=== PATIENT | female | born 1990 | race Caucasian/White ===

== ENCOUNTER 2019-12-09 21:46 | Inpatient (IN) | payer OTHER, SELFPAY ==
[2019-12-09] MEDS ORDERED: NA CHLORIDE 0.9% 2,000 ML ONE (22:57)
[2019-12-09] MEDS ORDERED: ONDANSETRON 4 MG/2 ML VIAL ONE (23:40)
[2019-12-10 00:02] LABS: Absolute Lymphocytes (CBC) 1.7 K/uL (0.7-4.9); Basophils % 0.4 % (0-1.3); Hematocrit 33.7 % (36.0-45.0); MPV 8.1 fL (7.6-11.3); RBC Red Blood Cell Count 4.87 M/uL (3.86-4.86)
[2019-12-10 00:04] LABS: Protime INR 1.25
[2019-12-10] MEDS ORDERED: METHYLPREDNISOLONE 125 MG INJ ONE (00:30)
[2019-12-10] MEDS ORDERED: DIPHENHYDRAMINE 50 MG/ML VIAL ONE (00:30)
[2019-12-10] MEDS ORDERED: METOCLOPRAMIDE 10 MG/2mL INJ ONE (00:34)
[2019-12-10 00:47] LABS: ALT/SGPT 24 U/L (12-78); AST/SGOT 23 U/L (15-37); Albumin 3.4 g/dL (3.4-5.0); Alkaline Phosphatase 83 U/L (45-117); BUN Blood Urea Nitrogen 15 mg/dL (7-18); Bicarbonate 27 mmol/L (21-32); Bilirubin Direct 0.1 mg/dL (0-0.2); Bilirubin Total 0.2 mg/dL (0.2-1.0); Creatine Phosphokinase 49 U/L (26-192); Glucose Level 105 mg/dL (74-106); Potassium 3.2 mmol/L (3.5-5.1); Protein, Total 8.4 g/dL (6.4-8.2); Sodium Level 138 mmol/L (136-145); Troponin (Emerg Dept Use Only) < 0.02 ng/mL (0.0-0.045)
[2019-12-10 01:01] LABS: Blood Morphology Comment NOTED (NOT SEEN); Hypochromasia 1+; Platelet Estimate ADEQ; Urine White Blood Cell Casts OK
[2019-12-10 01:12] LABS: Urine Bacteria 20-50 /HPF (<20); Urine Culture Reflex Order REFLEXED; Urine Mucus 2+ /HPF (NONE SEEN); Urine RBC <5 /HPF (NONE SEEN)
--- NOTE | 2019-12-10 02:06 | EDPHYS ---
Physician Documentation [facility] Name: Charlee Rodriguez Age: 29 yrs Sex: Female : 1990 Arrival Date: 12/09/2019 Time: 21:48 Bed 13 Private MD: ED Physician Alvaro Graf HPI: 23:38 This 29 yrs old Female presents to ER via Ambulatory with complaints of Fever.jr8 23:38 The patient reports fever, not measured (subjective). Onset: The symptoms/episode jr8 began/occurred acutely, 1 week(s) ago. Modifying factors: there are no obvious modifying factors. Associated signs and symptoms: Pertinent positives: arthralgias, myalgias. Severity of symptoms: At their worst the symptoms were moderate in the emergency department the symptoms are unchanged. The patient has not experienced similar symptoms in the past. The patient has been recently seen by a physician:. Patient stated that she started with fever a week ago. Stated that she was flu tested at [facility] and was negative. Stated that since yesterday she started having odd painful and itchy bruising spots along with still running fever. Denies abdominal pain, vomiting, or diarrhea. Denies upper respiratory complaints. Occasional nausea . Historical: - Allergies: 22:10 pseudoephedrine HCl; ea - Home Meds: 22:10 None [Active]; ea - PMHx: 22:10 Anemia; Kidney stones; ea - PSHx: 22:10 ; Appendectomy; ea - Immunization history:: Adult Immunizations up to date. - Social history:: Smoking status: Patient denies any tobacco usage or history of. ROS: 23:38 Eyes: Negative for injury, pain, redness, and discharge, ENT: Negative for injury, jr8 pain, and discharge, Neck: Negative for injury, pain, and swelling, Cardiovascular: Negative for chest pain, palpitations, and edema, Respiratory: Negative for shortness of breath, cough, wheezing, and pleuritic chest pain, Back: Negative for injury and pain, MS/Extremity: Negative for injury and deformity, Skin: Positive for lesions Neuro: Negative for headache, weakness, numbness, tingling, and seizure. 23:38 Constitutional: Positive for body aches, chills, fatigue, fever, malaise. 23:38 Abdomen/GI: Positive for nausea, Negative for abdominal pain, vomiting, diarrhea, constipation, abdominal cramps, abdominal distension, anorexia, dysphagia, hematemesis, black/tarry stool, rectal pain, rectal bleeding, bowel incontinence, flatulence. Exam: 23:38 Eyes: Pupils equal round and reactive to light, extra-ocular motions intact. Lids and jr8 lashes normal. Conjunctiva and sclera are non-icteric and not injected. Cornea within normal limits. Periorbital areas with no swelling, redness, or edema. ENT: Nares patent. No nasal discharge, no septal abnormalities noted. Tympanic membranes are normal and external auditory canals are clear. Oropharynx with no redness, swelling, or masses, exudates, or evidence of obstruction, uvula midline. Mucous membranes moist. Neck: Trachea midline, no thyromegaly or masses palpated, and no cervical lymphadenopathy. Supple, full range of motion without nuchal rigidity, or vertebral point tenderness. No Meningismus. Respiratory: Lungs have equal breath sounds bilaterally, clear to auscultation and percussion. No rales, rhonchi or wheezes noted. No increased work of breathing, no retractions or nasal flaring. Abdomen/GI: Soft, non-tender, with normal bowel sounds. No distension or tympany. No guarding or rebound. No evidence of tenderness throughout. Back: No spinal tenderness. No costovertebral tenderness. Full range of motion. MS/ Extremity: Pulses equal, no cyanosis. Neurovascular intact. Full, normal range of motion. Neuro: Awake and alert, GCS 15, oriented to person, place, time, and situation. Cranial nerves II-XII grossly intact. Motor strength 5/5 in all extremities. Sensory grossly intact. Cerebellar exam normal. Normal gait. 23:38 Cardiovascular: Rate: tachycardic, Rhythm: regular, Pulses: Pulses are 2+ in right radial artery and left radial artery. Heart sounds: normal, normal S1and S2, no S3 or S4, no murmur, no rub, no gallop, Edema: is not appreciated, JVD: is not appreciated. 23:38 Skin: Patient has painful red, raised, macular regions to lower extremities, feet, and abdomen. Non blanching and some with ecchymotic sites . Vital Signs: 22:02 BP 120 / 78; Pulse 110; Resp 18; Temp 98.8; Pulse Ox 98% on R/A; Weight 58.97 kg; ea Height 5 ft. 7 in. (170.18 cm); 12/09 01:00 BP 106 / 64; Pulse 97; Resp 18; Pulse Ox 98% ; ea 02:00 BP 108 / 70; Pulse 98; Resp 18; Pulse Ox 98% on R/A; ea 03:07 BP 102 / 71; Pulse 95; Resp 18; Pulse Ox 96% ; ea 04:06 BP 106 / 72; Pulse 86; Resp 16 S; Temp 98(O); Pulse Ox 96% on R/A; Pain 2/10; bb 22:02 Body Mass Index 20.36 (58.97 kg, 170.18 cm) ea Procedures: 02:30 Lumbar Puncture: Patient placed in sitting position. Prepped with Betadine. Draped jr8 using sterile technique. Collected 8 ml's of clear fluid. Sample sent to lab. Puncture site dressed with band aid, Patient tolerated well. MDM: 22:26 Patient medically screened. [facility] [place] 12/09 02:04 Data reviewed: vital signs, nurses notes, lab test result(s), EKG, radiologic studies, [facility] [place] CT scan, plain films. Data interpreted: Pulse oximetry: on room air is 98 %. Interpretation: normal. Counseling: I had a detailed discussion with the patient and/or guardian regarding: the historical points, exam findings, and any diagnostic results supporting the discharge/admit diagnosis, lab results, radiology results, the need for outpatient follow up. Physician consultation: Damon Nash MD was called at 02:04, was contacted at 02:04, regarding admission, to the telemetry unit. consult, patient's condition, and will see patient in ED. 22:45 Order name: Sed Rate; Complete Time: 01:13 [facility] [place] 22:45 Order name: Basic Metabolic Panel; Complete Time: 00:48 [facility] [place] 22:45 Order name: Blood Culture Adult (2) [facility] [place] 22:45 Order name: CBC with Diff; Complete Time: 01:13 [facility] [place] 22:45 Order name: CPK; Complete Time: 00:48 [facility] [place] 22:45 Order name: Lactate; Complete Time: 00:14 [facility] [place] 22:45 Order name: LFT's; Complete Time: 00:48 8 22:45 Order name: Procalcitonin; Complete Time: 00:48 22:45 Order name: Protime (+inr); Complete Time: 00:14 8 22:45 Order name: Ptt, Activated; Complete Time: 00:14 8 22:45 Order name: Troponin (emerg Dept Use Only); Complete Time: 00:48 8 22:45 Order name: CRP; Complete Time: 00:48 8 22:45 Order name: Wilkin Screen Profile; Complete Time: 00:25 8 22:46 Order name: Urine Microscopic Only; Complete Time: 01:13 jr8 12/09 00:09 Order name: CBC Smear Scan; Complete Time: 01:13 EDMS 12/09 01:16 Order name: Urine Culture EDMS 12/09 02:04 Order name: CSF Bacterial Antigens (tube 1); Complete Time: 15:36 jr8 12/09 02:04 Order name: Csf Culture 8 12/09 02:04 Order name: Fluid Cell Count,Body; Complete Time: 15:36 jr8 12/09 02:04 Order name: Spinal Fluid Profile; Complete Time: 15:36 jr8 12/09 03:03 Order name: CBC with Automated Diff EDMS 12/09 03:03 Order name: CBC with Automated Diff EDMS 12/09 03:03 Order name: Comprehensive Metabolic Panel EDMS 12/09 03:03 Order name: Comprehensive Metabolic Panel EDMS 12/09 03:07 Order name: D-Dimer; Complete Time: 15:36 EDMS 12/09 03:07 Order name: Cortisol; Complete Time: 15:36 EDMS 12/09 03:07 Order name: C-Reactive Protein; Complete Time: 15:36 EDMS 12/09 03:07 Order name: Ferritin; Complete Time: 15:36 EDMS 12/09 03:08 Order name: Fibrinogen; Complete Time: 15:36 EDMS 12/09 03:08 Order name: Protime (+INR); Complete Time: 15:36 EDMS 22:45 Order name: Chest Single View XRAY; Complete Time: 15:36 jr8 22:45 Order name: Cardiac monitoring; Complete Time: 01:14 jr8 22:45 Order name: EKG - Nurse/Tech; Complete Time: 22:57 8 22:45 Order name: IV Saline Lock - Large Bore; Complete Time: 23:46 jr8 22:45 Order name: Labs collected and sent; Complete Time: 23:52 8 22:45 Order name: O2 Per Protocol; Complete Time: 23:53 8 22:45 Order name: O2 Sat Monitoring; Complete Time: 23:53 8 22:45 Order name: Urine Dipstick-Ancillary (obtain specimen); Complete Time: 23:53 8 22:46 Order name: Urine Test (obtain specimen); Complete Time: 01:14 jr8 12/09 00:46 Order name: CT Head Brain wo Cont jr8 12/09 03:03 Order name: CONS Pharmacy Consult EDMS 12/09 03:03 Order name: Regular EDMS 12/09 03:08 Order name: PTT, Activated Partial Thromb; Complete Time: 15:36 EDMS 12/09 03:08 Order name: Sedimentation Rate, Westergren; Complete Time: 15:36 EDMS 12/09 03:08 Order name: Transferrin Sat/Iron Binding; Complete Time: 15:36 EDMS 12/09 03:08 Order name: Basic Metabolic Panel EDMS 12/09 03:08 Order name: Basic Metabolic Panel; Complete Time: 15:36 EDMS 12/09 03:08 Order name: CBC with Automated Diff EDMS 12/09 03:08 Order name: CBC with Automated Diff; Complete Time: 15:36 EDMS 12/09 03:08 Order name: Lactate EDMS 12/09 03:08 Order name: Lactate; Complete Time: 15:36 EDMS 12/09 03:08 Order name: Procalcitonin EDMS 12/09 03:08 Order name: Procalcitonin; Complete Time: 15:36 EDMS 12/09 03:08 Order name: Iron; Complete Time: 15:36 EDMS 12/09 02:04 Order name: LP Setup; Complete Time: 02:46 8 12/09 02:04 Order name: LP Consents; Complete Time: 02:46 Administered Medications: 23:45 Drug: NS 0.9% (30 ml/kg) 30 ml/kg Route: IV; Rate: bolus; Site: right antecubital; ea 12/09 02:47 Follow up: Response: No adverse reaction; IV Status: Completed infusion ea 00:32 Drug: SOLU-Medrol 125 mg Route: IVP; Site: right antecubital; ea 01:14 Follow up: Response: No adverse reaction ea 00:41 Drug: Benadryl 25 mg Route: IVP; Site: right antecubital; ea 01:14 Follow up: Response: No adverse reaction ea 00:41 Drug: Zofran (Ondansetron) 4 mg Route: IVP; Site: right antecubital; ea 01:15 Follow up: Response: No adverse reaction ea 00:41 Drug: Reglan 10 mg Route: IVP; Site: right antecubital; ea 01:15 Follow up: Response: No adverse reaction ea 02:40 Drug: Rocephin 1 grams Route: IV; Rate: calculated rate; Site: right antecubital; ea 02:59 Follow up: Response: No adverse reaction; IV Status: Completed infusion ea 03:20 Drug: fentaNYL (PF) 50 mcg Route: IVP; Site: right antecubital; ea Disposition: 07:24 Co-signature as Attending Physician, Alvaro Graf MD I agree with the assessment and tw4 plan of care. Disposition: 12/10/19 02:05 Hospitalization ordered by Damon Nash for Observation. Preliminary diagnosis are Vasculitis limited to the skin, unspecified, Dehydration, Tachycardia, unspecified. - Bed requested for Telemetry/MedSurg (observation). - Status is Observation. bb - Condition is Stable. - Problem is new. - Symptoms have improved. Signatures: Dispatcher [employer] EDMS Frances Woods RN RN mw Ballard, Brenda, RN RN bb Roszak, Josh, PA PA jrCarmina Fernández RN RN ea Wadley, Terrence, MD MD tw4 Corrections: (The following items were deleted from the chart) 23:41 23:38 Eyes: Negative for injury, pain, redness, and discharge, ENT: Negative for jr8 injury, pain, and discharge, Neck: Negative for injury, pain, and swelling, Cardiovascular: Negative for chest pain, palpitations, and edema, Respiratory: Negative for shortness of breath, cough, wheezing, and pleuritic chest pain, Back: Negative for injury and pain, MS/Extremity: Negative for injury and deformity, Skin: Negative for injury, rash, and discoloration, Neuro: Negative for headache, weakness, numbness, tingling, and seizure, jr8 12/09 02:36 02:05 Hospitalization Ordered by Damon Nash MD for Observation. Preliminary mw diagnosis is Vasculitis limited to the skin, unspecified; Dehydration; Tachycardia, unspecified. Bed requested for Telemetry/MedSurg (observation). Status is Observation. Condition is Stable. Problem is new. Symptoms have improved. jr8 04:08 02:36 12/10/2019 02:05 Hospitalization Ordered by Damon Nash MD for Observation. bb Preliminary diagnosis is Vasculitis limited to the skin, unspecified; Dehydration; Tachycardia, unspecified. Bed requested for Telemetry/MedSurg (observation). Status is Observation. Condition is Stable. Problem is new. Symptoms have improved. mw
--- NOTE | 2019-12-10 02:06 | ER ---
Nurse's Notes [facility] Name: Charlee Rodriguez Age: 29 yrs Sex: Female : 1990 Arrival Date: 12/09/2019 Time: 21:48 Bed 13 Private MD: Diagnosis: Vasculitis limited to the skin, unspecified;Dehydration;Tachycardia, unspecified Presentation: 22:02 Chief complaint: Patient states: Reports she has been running fever for the past 6 ea days, went to [place] 3 days ago was tested for the flu and was negative. Reports redness, swelling and warmth to right foot. Coronavirus screen: The patient has NOT traveled to [place] in the past 14 days. Ebola Screen: No symptoms or risks identified at this time. Initial Sepsis Screen: Does the patient meet any 2 criteria? HR > 90 bpm. Does the patient have a suspected source of infection? No. Patient's initial sepsis screen is negative. Risk Assessment: Do you want to hurt yourself or someone else? Patient reports no desire to harm self or others. 22:02 Method Of Arrival: Ambulatory ea 22:02 Acuity: JOANN 3 ea 22:10 Onset of symptoms was December 09, 2019. ea Triage Assessment: 22:10 General: Appears uncomfortable, Behavior is appropriate for age. Pain: Denies pain. ea Neuro: Level of Consciousness is awake, alert, obeys commands, Oriented to person, place, time, situation. Cardiovascular: Patient's skin is warm and dry. Historical: - Allergies: 22:10 pseudoephedrine HCl; ea - Home Meds: 22:10 None [Active]; ea - PMHx: 22:10 Anemia; Kidney stones; ea - PSHx: 22:10 ; Appendectomy; ea - Immunization history:: Adult Immunizations up to date. - Social history:: Smoking status: Patient denies any tobacco usage or history of. Screenin:07 Abuse screen: Denies threats or abuse. Nutritional screening: No deficits noted. ea Tuberculosis screening: No symptoms or risk factors identified. Fall Risk None identified. Assessment: 22:17 General: Appears comfortable, Behavior is calm, cooperative, appropriate for age, fu Reports fever for on and off for 6 days. General: Reports migraine headaches, and chills at home. Pain: Complains of pain in head Pain does not radiate. Pain currently is 4 out of 10 on a pain scale. Quality of pain is described as aching. Neuro: Level of Consciousness is awake, alert, obeys commands, Oriented to person, place, time, situation, [employer] Promoter are equal bilaterally Moves all extremities. Gait is steady. Neuro: Reports body aches. Cardiovascular: Denies chest pain, nausea, vomiting. Respiratory: Denies shortness of breath. GI: Bowel sounds present X 4 quads. Derm: redness to right foot, left knee area and left thigh Reports lump on the right groin area. 23:30 Reassessment: Patient and/or family updated on plan of care and expected duration. Pain ea level reassessed. Patient is alert, oriented x 3, equal unlabored respirations, skin warm/dry/pink. 12/09 00:30 Reassessment: Patient and/or family updated on plan of care and expected duration. Pain ea level reassessed. Patient is alert, oriented x 3, equal unlabored respirations, skin warm/dry/pink. 01:24 Reassessment: Patient and/or family updated on plan of care and expected duration. Pain ea level reassessed. Patient is alert, oriented x 3, equal unlabored respirations, skin warm/dry/pink. 02:38 Reassessment: Patient and/or family updated on plan of care and expected duration. Pain ea level reassessed. Patient is alert, oriented x 3, equal unlabored respirations, skin warm/dry/pink. 03:55 Reassessment: report called to Pastora DAMON for room 409. bb 04:05 Reassessment: Patient is alert, oriented x 3, equal unlabored respirations, skin bb warm/dry/pink. pt lying flat post LP, IV site intact no erythema or edema noted, parent at bedside. Vital Signs: 22:02 BP 120 / 78; Pulse 110; Resp 18; Temp 98.8; Pulse Ox 98% on R/A; Weight 58.97 kg; ea Height 5 ft. 7 in. (170.18 cm); 12/09 01:00 BP 106 / 64; Pulse 97; Resp 18; Pulse Ox 98% ; ea 02:00 BP 108 / 70; Pulse 98; Resp 18; Pulse Ox 98% on R/A; ea 03:07 BP 102 / 71; Pulse 95; Resp 18; Pulse Ox 96% ; ea 04:06 BP 106 / 72; Pulse 86; Resp 16 S; Temp 98(O); Pulse Ox 96% on R/A; Pain 2/10; bb 22:02 Body Mass Index 20.36 (58.97 kg, 170.18 cm) ea ED Course: 21:48 Patient arrived in ED. cl3 22:02 Edwin Jason PA is PHCP. jr8 22:02 Alvaro Graf MD is Attending Physician. jr8 22:07 Triage completed. ea 22:07 Patient has correct armband on for positive identification. Bed in low position. Call ea light in reach. 22:08 Arm band placed on right wrist. Patient placed in an exam room, on a stretcher, on ea pulse oximetry. 22:10 Konrad Adorno RN is Primary Nurse. fu 22:22 Pulse ox on. NIBP on. fu 23:07 Chest Single View XRAY In Process Unspecified. EDMS 23:31 Inserted saline lock: 20 gauge in right antecubital area, using aseptic technique. ea Blood collected. 12/09 01:14 CT Head Brain wo Cont In Process Unspecified. EDMS 02:05 Damon Nash MD is Hospitalizing Provider. jr8 02:38 Assist provider with lumbar puncture: Set up LP tray. Performed by Edwin BROWNING CSF ea is clear. Puncture site dressed with band aid, Procedure was successful. Patient tolerated well. 03:00 No provider procedures requiring assistance completed. Patient admitted, IV remains in ea place. Administered Medications: 23:45 Drug: NS 0.9% (30 ml/kg) 30 ml/kg Route: IV; Rate: bolus; Site: right antecubital; ea 12/09 02:47 Follow up: Response: No adverse reaction; IV Status: Completed infusion ea 00:32 Drug: SOLU-Medrol 125 mg Route: IVP; Site: right antecubital; ea 01:14 Follow up: Response: No adverse reaction ea 00:41 Drug: Benadryl 25 mg Route: IVP; Site: right antecubital; ea 01:14 Follow up: Response: No adverse reaction ea 00:41 Drug: Zofran (Ondansetron) 4 mg Route: IVP; Site: right antecubital; ea 01:15 Follow up: Response: No adverse reaction ea 00:41 Drug: Reglan 10 mg Route: IVP; Site: right antecubital; ea 01:15 Follow up: Response: No adverse reaction ea 02:40 Drug: Rocephin 1 grams Route: IV; Rate: calculated rate; Site: right antecubital; ea 02:59 Follow up: Response: No adverse reaction; IV Status: Completed infusion ea 03:20 Drug: fentaNYL (PF) 50 mcg Route: IVP; Site: right antecubital; ea Intake: 04:06 IV: 2000ml (IV Fluid); Total: 2000ml. lance Outcome: 02:05 Decision to Hospitalize by Provider. jrTasha 03:00 Condition: stable ea 03:00 Instructed on the need for admit, Demonstrated understanding of instructions. 03:57 Admitted to Tele accompanied by tech, via stretcher, room 409, with chart, Report bb called to Pastora DAMON 04:08 Patient left the ED. bb Signatures: Dispatcher [employer] EDCarley Johnson RN RN Edwin Sims PA PA jr8 Carmina Loaiza RN RN Konrad Vaaldez, RN RN Prudence Fernandez cl3 Corrections: (The following items were deleted from the chart) 22:25 22:17 Derm: redness to right foot, leg knee area and left thigh Reports lump on the fu right groin area fu
[2019-12-10] MEDS ORDERED: CEFTRIAXONE/SWI 1gm 1 GM/10 ML SYR ONE (02:09)
[2019-12-10] MEDS ORDERED: ONDANSETRON 4 MG/2 ML VIAL IV PRN (02:58)
[2019-12-10] MEDS ORDERED: ACETAMINOPHEN 500 MG TAB PO PRN (02:58)
[2019-12-10 03:14] LABS: Appearance CLEAR (CLEAR); Body Fluid Source CSF; Color of fluid Colorless (COLORLESS); Fluid Total Volume 8 ml
[2019-12-10] MEDS ORDERED: FENTANYL CITR 100 MCG/2 ML ONE (03:20)
[2019-12-10 03:41] LABS: Body Fluid WBC 106 /mm^3
[2019-12-10 03:45] LABS: CSF Glucose 64 mg/dL (40-70)
[2019-12-10 03:58] LABS: Appearance CLEAR (CLEAR); Body Fluid Source CSF; Color of fluid Colorless (COLORLESS)
[2019-12-10] MEDS: NA CHLORIDE 0.9% 1,000 ML IV SCH ×3 (04:17→22:45)
[2019-12-10 04:25] LABS: Body Fluid WBC 46 /mm^3
[2019-12-10] MEDS ORDERED: DIPHENHYDRAMINE 50 MG/ML VIAL IV ONE (04:33)
[2019-12-10 04:54] VITALS: BMI 26.2
[2019-12-10] MEDS ORDERED: METOCLOPRAMIDE 10 MG/2mL INJ IV SCH (05:00)
[2019-12-10] MEDS: MORPHINE 2 MG/ML SYR IV PRN ×5 (06:04→22:45)
--- NOTE | 2019-12-10 06:08 | P.HP ---
Certification for Inpatient Patient admitted to: Observation With expected LOS: <2 Midnights Patient will require the following post-hospital care: None Practitioner: I am a practitioner with admitting privileges, knowledge of patient current condition, hospital course, and medical plan of care. Services: Services provided to patient in accordance with Admission requirements found in Title 42 Section 412.3 of the Code of Federal Regulations Patient History Date of Service: 12/10/19 Reason for admission: HEADACHE; FEVER; LOWER EXTREMITY BRUISING History of Present Illness: Patient is a 29-year-old female who has been having fever, headaches, and she has noticed some abnormal bruising to the lower extremity. She went with similar symptoms to the local emergency room which she was discharged for outpatient follow-up. Clinically, she has not been feeling any better. She came to our hospital for further evaluation. In the emergency room she was found to have an elevated white blood cell count was slightly elevated protein. This is suggestive of a viral meningitis. She does have the elevated CRP as well. Her protime was also elevated. Along with the bruising will make sure there is no other abnormalities going on. She was given a dose of IV steroids in the emergency room. Will continue to gently hydrate her and will get neurology consultation. She states she has been having a headache and it feels like a migraine, but she normally does not suffer from these. she was also having some neck pain when she went to [facility] but this has resolved. She has not had a fever during her ER visit. She has been taking Tylenol and Motrin around the clock. Will monitor her closely at this time. She will be admitted for observation stay. Allergies pseudoephedrine HCl [From Sudafed] Allergy (Mild, Verified 11/22/12 16:28) Rash Home Medications: NK [No Home Meds] 12/10/19 - Past Medical/Surgical History Has patient received pneumonia vaccine in the past: No Diabetic: No Past Medical History: Patient denies medical history -: -: Appendectomy - Family History Father Family History: Reviewed- Non-Contributory - Social History Smoking Status: Never smoker Alcohol use: No CD- Drugs: No Caffeine use: No Place of Residence: Home Review of Systems 10-point ROS is otherwise unremarkable Physical Examination - Vital Signs Temperature: 98 F Blood Pressure: 106/72 Pulse: 86 Respirations: 16 Pulse Ox (%): 96 - Physical Exam General: Alert, In no apparent distress, Oriented x3 HEENT: Atraumatic, PERRLA, Mucous membr. moist/pink, EOMI, Sclerae nonicteric Neck: Supple, 2+ carotid pulse no bruit, No LAD, Without JVD or thyroid abnormality Respiratory: Clear to auscultation bilaterally, Normal air movement Cardiovascular: Regular rate/rhythm, Normal S1 S2, No murmurs Gastrointestinal: Normal bowel sounds, Soft and benign, Non-distended, No tenderness Musculoskeletal: No clubbing, No swelling, No tenderness Integumentary: No rashes Neurological: Normal gait, Normal speech, Normal strength at 5/5 x4 extr, Normal tone, Sensation intact, Cranial nerves 3-12 intact, Normal affect Lymphatics: No axilla or inguinal lymphadenopathy - Studies Laboratory Data (last 24 hrs) 12/09/19 23:27: WBC 9.4, Hgb 10.5 L, Hct 33.7 L, Plt Count 319 12/09/19 23:20: PT 14.6 H, INR 1.25, APTT 31.0 12/09/19 23:20: Sodium 138, Potassium 3.2 L, BUN 15, Creatinine 0.86, Glucose 105, Total Bilirubin 0.2, AST 23, ALT 24, Alkaline Phosphatase 83 Microbiology Data (last 24 hrs): 12/10/19 02:30 Cerebral Spinal Fluid CSF Bacterial Antigens (Tube 1) - Final Assessment & Plan - Problems (Diagnosis) (1) Viral meningitis Current Visit: Yes Status: Acute (2) Bruising Current Visit: Yes Status: Acute (3) Elevated protime Current Visit: Yes Status: Acute (4) Elevated C-reactive protein (CRP) Current Visit: Yes Status: Acute - Plan Plan: 1. IV hydration 2. Pain control 3. neurology consultation 4. coagulation workup 5. repeat inflammatory markers 6. GI and DVT prophylaxis Discharge Plan: Home Plan to discharge in: 48 Hours - Advance Directives Does patient have a Living Will: No Does patient have a Durable POA for Healthcare: No - Code Status/Comfort Care Code Status Assessed: Yes Code Status: Full Code Critical Care: No Time Spent Managing PTS Care (In Minutes): 45
[2019-12-10] MEDS ORDERED: IBUPROFEN 400 MG TAB PO PRN (06:38)
[2019-12-10 07:22] LABS: Protime INR 1.35
[2019-12-10] MEDS: FAMOTIDINE 20 MG TAB PO SCH ×2 (07:44→20:58)
[2019-12-10] MEDS: CEFTRIAXONE/SWI 1gm 1 GM/10 ML SYR IV SCH ×2 (07:44→20:57)
[2019-12-10 07:49] LABS: Ferritin 24.8 ng/mL (8-388)
[2019-12-10 08:06] LABS: Ferritin 24.4 ng/mL (8-388)
[2019-12-10] MEDS ORDERED: CEFTRIAXONE 1 GM/NS 50 ML 1 GM/50 ML BAG IV SCH (09:00)
[2019-12-10 09:13] LABS: Absolute Lymphocytes (CBC) 0.4 K/uL (0.7-4.9); Basophils % 0.1 % (0-1.3); Hematocrit 30.3 % (36.0-45.0); Lymphocytes % 4.9 % (15.3-44.8); MPV 8.5 fL (7.6-11.3); RBC Red Blood Cell Count 4.31 M/uL (3.86-4.86)
[2019-12-10] MEDS ORDERED: ACETAMIN/CAFFEINE/BUTALB TAB PO PRN (10:57)
[2019-12-10] MEDS ORDERED: ACETAMIN/CAFFEINE/BUTALB TAB PO SCH (11:00)
[2019-12-10 11:34] LABS: BUN Blood Urea Nitrogen 8 mg/dL (7-18); Bicarbonate 24 mmol/L (21-32); Glucose Level 227 mg/dL (74-106); Potassium 3.4 mmol/L (3.5-5.1); Sodium Level 140 mmol/L (136-145)
--- NOTE | 2019-12-10 11:59 | RAD REPORT ---
EXAM DESCRIPTION: RAD - Chest Single View - 12/09/2019 11:06 pm CLINICAL HISTORY: FEVER Chest pain. COMPARISON: No comparisons FINDINGS: Portable technique limits examination quality. The lungs are grossly clear. The heart is normal in size. No displaced fractures. IMPRESSION: No acute intrathoracic process suspected.
--- NOTE | 2019-12-10 13:43 | P.PN ---
Subjective Date of Service: 12/10/19 Primary Care Provider: None Chief Complaint: HEADACHE; FEVER; LOWER EXTREMITY BRUISING Subjective: Other (Patient doing better. She did have some headache this morning. Rash to the foot has improved. Still reporting some back pain to the side of lumbar tap. No significant nausea vomiting.) Physical Examination - Vital Signs Temperature: 98 F Blood Pressure: 106/72 Pulse: 86 Respirations: 16 Pulse Ox (%): 96 - Physical Exam General: Alert, In no apparent distress, Oriented x3, Cooperative HEENT: Atraumatic Neck: Supple Respiratory: Clear to auscultation bilaterally, Normal air movement Cardiovascular: Normal pulses, Regular rate/rhythm Gastrointestinal: Normal bowel sounds, Soft and benign, Non-distended, No tenderness, No masses, No rebound, No guarding Integumentary: Other (Erythema patch to the right foot. Smaller patches less than a dying to the abdomen.) Neurological: Normal speech, Normal strength at 5/5 x4 extr, Normal tone, Normal reflexes 2+ Lymphatics: Inguinal lymphadenopathy, Other (Submandibular adenopathy noted. Inguinal adenopathy noted.) - Studies Laboratory Data (last 24 hrs) 12/09/19 23:27: WBC 9.4, Hgb 10.5 L, Hct 33.7 L, Plt Count 319 12/09/19 23:20: PT 14.6 H, INR 1.25, APTT 31.0 12/09/19 23:20: Sodium 138, Potassium 3.2 L, BUN 15, Creatinine 0.86, Glucose 105, Total Bilirubin 0.2, AST 23, ALT 24, Alkaline Phosphatase 83 Microbiology Data (last 24 hrs): 12/10/19 02:30 Cerebral Spinal Fluid Gram Stain - Final 12/10/19 02:30 Cerebral Spinal Fluid CSF Bacterial Antigens (Tube 1) - Final Medications List Reviewed: Yes Assessment & Plan Discharge Plan: Home Plan to discharge in: 24 Hours Physician Review Additional Text: Impression: Fever, fatigue, headache with multiple erythematous rashes suspect viral infection with post inflammatory response likely autoimmune related verses other Possible UTI Mild dehydration History of migraine headaches Iron deficiency anemia Plan: Fever, fatigue, headache with multiple erythematous rashes suspect viral infection with post inflammatory response likely autoimmune related verses other : Patient seems to have improved. Will continue with IV fluids. Case discussed at length with Neurology. Abnormal lab includes C reactive protein, sed rate, pro calcitonin, elevated protein and elevated globulin. Family history of autoimmune disease. Symptoms started about a week ago. No indication of sick contacts. No recent travel. Suspect autoimmune versus other inflammatory reaction. Will give Solu-Medrol 1000 mg IV. Patient remains on Rocephin. Continue IV fluids. Will recheck lab tomorrow. Will send for lab-HIV, RPR, hepatitis, HUNTER, serum protein electrophoresis, complement levels. Will need to rule out bacteremia. Possible discharge in the next 12-48 hrs pending clinical improvement. Possible UTI: Continue antibiotic therapy. Await urine culture. Urine negative. Mild dehydration: Continue IV fluids. Electrolyte protocol in place. History of migraine headaches: Will provide medication for pain. Continue IV fluids. Iron deficiency anemia: Will monitor closely. Patient require iron supplementation at discharge. Time Spent Managing Pts Care (In Minutes): 55
[2019-12-10] MEDS ORDERED: METHYLPRED NA SUC 1,000 MG in NA CHLORIDE 0.9% 100 ML IV ONE (14:00)
[2019-12-11] MEDS: MORPHINE 2 MG/ML SYR IV PRN (04:23)
[2019-12-11 05:12] LABS: Absolute Lymphocytes (CBC) 0.8 K/uL (0.7-4.9); Hematocrit 29.3 % (36.0-45.0); Lymphocytes % 5.5 % (15.3-44.8); MPV 8.3 fL (7.6-11.3); RBC Red Blood Cell Count 4.18 M/uL (3.86-4.86)
[2019-12-11 05:26] LABS: ALT/SGPT 20 U/L (12-78); AST/SGOT 10 U/L (15-37); Alkaline Phosphatase 69 U/L (45-117); BUN Blood Urea Nitrogen 6 mg/dL (7-18); Bicarbonate 22 mmol/L (21-32); Bilirubin Total 0.2 mg/dL (0.2-1.0); Glucose Level 143 mg/dL (74-106); Potassium 3.7 mmol/L (3.5-5.1); Protein, Total 7.3 g/dL (6.4-8.2); Sodium Level 140 mmol/L (136-145)
[2019-12-11 06:48] LABS: Platelet Estimate ADEQ
[2019-12-11 06:49] LABS: Anisocytosis 1+; Blood Morphology Comment NOTED (NOT SEEN); Hypochromasia 1+; Ovalocytes 1+
[2019-12-11] MEDS: CEFTRIAXONE/SWI 1gm 1 GM/10 ML SYR IV SCH (08:05)
[2019-12-11] MEDS: FAMOTIDINE 20 MG TAB PO SCH (08:05)
[2019-12-11] MEDS ORDERED: predniSONE 20 MG TAB PO SCH (09:00)
[2019-12-11] MEDS: NA CHLORIDE 0.9% 1,000 ML IV SCH (09:29)
[2019-12-11 10:24] VITALS: O2SAT 97
[2019-12-11 10:40] LABS: Rheumatoid Factor NEG (NEG)
--- NOTE | 2019-12-11 13:35 | RAD REPORT ---
EXAM DESCRIPTION: Head Brain Wo Cont CLINICAL HISTORY: HEADACHE COMPARISON: None Available. TECHNIQUE: Multiple helical axial tomographic images were obtained of the head without intravenous c ontrast. This exam was performed according to our departmental dose-optimization program, which inclu anai automated exposure control, adjustment of the mA and/or kV according to patient size and/or use o f iterative reconstruction technique. FINDINGS: There is no acute intracranial hemorrhage. No mass. No midline shift. No ventriculomegaly. Marie-white matter differentiation is maintained. Paranasal sinuses are clear. Mastoid air cells and middle ear spaces are clear. Orbits and orbital co ntents are unremarkable. Osseous structures are unremarkable. Surrounding soft tissues are unremarkable. IMPRESSION: No acute intracranial process. Electronically signed by: Daniel Varela MD 12/10/2019 1:39 AM PERSONAL BANKING REPRESENTATIVE Due to temporary technical issues with the PACS/Fluency reporting system, reports are being signed by the in house radiologist as a courtesy to ensure prompt reporting. The interpreting radiologist is f ully responsible for the content of the report.
--- NOTE | 2019-12-11 14:48 | RAD REPORT ---
EXAM DESCRIPTION: MRI - Brain W/Wo Cont - 12/11/2019 2:29 pm CLINICAL HISTORY: Viral meningitis vs. cerebral vasculitis Headache, drowsiness COMPARISON: Head Brain Wo Cont dated 12/10/2019 TECHNIQUE: Multi-sequence, multiplanar MR imaging of the brain was performed with contrast. FINDINGS: No intracranial hemorrhage, hydrocephalus, or extra-axial fluid collection. No edema or sh ift of midline structures. No intracranial mass. DWI is negative for acute CVA. The midline structures are normally formed. Mastoid air cells and paranasal sinuses are clear except for a 7 mm mucous retention cyst in the right maxillary antrum. Post-contrast images demonstrate a small developmental venous anomaly in the right cerebellar hemisph ere. No pathologic contrast enhancement to suggest tumor or infection. . IMPRESSION: No acute intracranial abnormalities. 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
--- NOTE | 2019-12-11 14:59 | P.DS ---
Admission Date: 12/10/19 Discharge Date: 12/11/19 Primary Care Provider: None Disposition: ROUTINE DISCHARGE Discharge Condition: GOOD Reason for Admission: HEADACHE; FEVER; LOWER EXTREMITY BRUISING Consultations: Neurology-Dr. Martinez Procedures: CXR: FINDINGS: Portable technique limits examination quality. The lungs are grossly clear. The heart is normal in size. No displaced fractures. IMPRESSION: No acute intrathoracic process suspected CT Head: FINDINGS: There is no acute intracranial hemorrhage. No mass. No midline shift. No ventriculomegaly. Marie-white matter differentiation is maintained. Paranasal sinuses are clear. Mastoid air cells and middle ear spaces are clear. Orbits and orbital contents are unremarkable. Osseous structures are unremarkable. Surrounding soft tissues are unremarkable. IMPRESSION: No acute intracranial process. MRI Brain: FINDINGS: No intracranial hemorrhage, hydrocephalus, or extra-axial fluid collection. No edema or shift of midline structures. No intracranial mass. DWI is negative for acute CVA. The midline structures are normally formed. Mastoid air cells and paranasal sinuses are clear except for a 7 mm mucous retention cyst in the right maxillary antrum. Post-contrast images demonstrate a small developmental venous anomaly in the right cerebellar hemisphere. No pathologic contrast enhancement to suggest tumor or infection. . IMPRESSION: No acute intracranial abnormalities. 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 Medical Problem List: Fever, fatigue, headache with multiple erythematous rashes suspect viral infection with post inflammatory response likely autoimmune related verses other Mild dehydration History of migraine headaches Iron deficiency anemia MRI showing small developmental venous anomaly right cerebral hemisphere, chronic Brief History of Present Illness: 29-year-old female presented to the emergency room after 1 week of fatigue, fever, headache and multiple rashes. Patient was evaluated in the emergency room. Patient had lumbar tap. Lumbar tap negative. Patient was admitted for further evaluation due to lab abnormalities. Hospital Course: Patient presented with fever, fatigue, headache with multiple erythematous rashes to her body. This had been present for about 1 week. Inflammatory factors including pro calcitonin, sed rate, C reactive protein, serum protein and globulin were elevated. Neurology was consulted. Findings likely reactive to post inflammatory response likely autoimmune related or mediated. Patient given high-dose steroids in the hospital. Symptoms resolved. Multiple rashes also improved. Lab for HIV, RPR, HUNTER, Anca, hepatitis, serum protein electrophoresis and complement levels have been sent to further evaluate. Family history of autoimmune disease. Suspect autoimmune process. Recommend follow up with a PCP to go over results. Patient may follow up with neurology in 1 week. At discharge she will continue with prednisone 20 mg 1 pill twice daily for 5 days then 1 pill once daily for 5 days. Patient may require rheumatology consultation as an outpatient to further address. Neurology will help in this process. Patient plans to establish care with a PCP in the area. There was some suspicion of UTI. Cultures negative. Patient given IV antibiotic therapy but no need at discharge. Patient with history of migraine headaches. MRI shows no acute findings but small developmental venous anomaly to the right cerebral hemisphere noted. This was addressed with Neurology. Neurology recommends repeat MRI in the near future to monitor stability. Patient may also have 4 vessel angiogram to further evaluate. Patient will follow up with neurology to further address. Patient may take Tylenol as needed for pain. Patient with iron deficiency anemia. At discharge hemoglobin has remained stable. She will continue with iron 325 mg 1 pill twice daily and folic acid daily. Recommend to recheck CBC in 2-4 weeks to monitor progress.. Vital Signs/Physical Exam: Temp Pulse Resp BP Pulse Ox 96.8 F 63 16 104/60 96 12/11/19 11:55 12/11/19 11:55 12/11/19 11:55 12/11/19 11:55 12/11/19 11:55 General: Alert, In no apparent distress, Oriented x3, Cooperative HEENT: Atraumatic Neck: Supple Respiratory: Clear to auscultation bilaterally, Normal air movement Cardiovascular: Normal pulses, Regular rate/rhythm Gastrointestinal: Normal bowel sounds, Soft and benign, Non-distended, No tenderness, No masses, No rebound, No guarding Musculoskeletal: No erythema, No tenderness, No warmth Integumentary: Other (Rash to the foot almost resolved) Neurological: Normal speech, Normal strength at 5/5 x4 extr, Normal tone, Normal affect Laboratory Data at Discharge: WBC 14.3 K/uL (4.3-10.9) H D 12/11/19 04:32 Hgb 9.2 g/dL (12.0-15.0) L 12/11/19 04:32 Hct 29.3 % (36.0-45.0) L 12/11/19 04:32 Plt Count 337 K/uL (152-406) 12/11/19 04:32 PT 15.8 SECONDS (9.5-12.5) H 12/10/19 06:54 INR 1.35 12/10/19 06:54 APTT 29.8 SECONDS (24.3-36.9) 12/10/19 06:54 Sodium 140 mmol/L (136-145) 12/11/19 04:32 Potassium 3.7 mmol/L (3.5-5.1) 12/11/19 04:32 BUN 6 mg/dL (7-18) L 12/11/19 04:32 Creatinine 0.39 mg/dL (0.55-1.3) L 12/11/19 04:32 Glucose 143 mg/dL (74-106) H 12/11/19 04:32 Total Bilirubin 0.2 mg/dL (0.2-1.0) 12/11/19 04:32 AST 10 U/L (15-37) L 12/11/19 04:32 ALT 20 U/L (12-78) 12/11/19 04:32 Alkaline Phosphatase 69 U/L (45-117) 12/11/19 04:32 Home Medications: Famotidine [Pepcid*] 20 mg PO BID #60 tab 12/11/19 Ferrous Sulfate [Iron] 325 mg PO BID #60 tablet 12/11/19 Folic Acid 1 mg PO DAILY #90 tablet 12/11/19 predniSONE [Prednisone*] 20 mg PO SEECOM #15 tab 12/11/19 New Medications: Famotidine [Pepcid*] 20 mg PO BID #60 tab Ferrous Sulfate [Iron] 325 mg PO BID #60 tablet Folic Acid 1 mg PO DAILY #90 tablet predniSONE [Prednisone*] 20 mg PO SEECOM #15 tab Patient Discharge Instructions: 1. Recommend follow up with PCP to follow up this hospitalization and to establish care. 2. Patient presented with fever, fatigue, headache with multiple erythematous rashes to her body. This had been present for about 1 week. Inflammatory factors including pro calcitonin, sed rate, C reactive protein, serum protein and globulin were elevated. Neurology was consulted. Findings likely reactive to post inflammatory response likely autoimmune related or mediated. Patient given high-dose steroids in the hospital. Symptoms resolved. Multiple rashes also improved. Lab for HIV, RPR , HUNTER, Anca, hepatitis, serum protein electrophoresis and complement levels have been sent to further evaluate. Family history of autoimmune disease. Suspect autoimmune process. Recommend follow up with a PCP to go over results. Patient may follow up with neurology in 1 week. At discharge she will continue with prednisone 20 mg 1 pill twice daily for 5 days then 1 pill once daily for 5 days. Patient may require rheumatology consultation as an outpatient to further address. Neurology will help in this process. Patient plans to establish care with a PCP in the area. 3. There was some suspicion of UTI. Cultures negative. Patient given IV antibiotic therapy but no need at discharge. 4. Patient with history of migraine headaches. MRI shows no acute findings but small developmental venous anomaly to the right cerebral hemisphere noted. This was addressed with Neurology. Neurology recommends repeat MRI in the near future to monitor stability. Patient may also have 4 vessel angiogram to further evaluate. Patient will follow up with neurology to further address. Patient may take Tylenol as needed for pain. 5. Patient with iron deficiency anemia. At discharge hemoglobin has remained stable. She will continue with iron 325 mg 1 pill twice daily and folic acid daily. Recommend to recheck CBC in 2-4 weeks to monitor progress.. Diet: Regular Activity: Ad asia Time spent managing pt's care (in minutes): 55
--- NOTE | 2019-12-11 15:37 | EKG ---
Test Date: 2019-12-09 Test Time: 22:52:36 Risk Control Field Representative: MEASUREMENT RESULTS: Intervals: Rate: 100 SD: 154 QRSD: 82 QT: 318 QTc: 410 Entriken: P: 58 SD: 154 QRS: 51 T: 35 INTERPRETIVE STATEMENTS: Normal sinus rhythm Normal ECG No previous ECG available for comparison Electronically Signed On 12-11-19 15:36:41 TOOTH CLERK by Jordi Noriega
[2019-12-11 17:13] VITALS: BP 115/68; TEMP 97.2
--- NOTE | 2019-12-11 21:26 | CON ---
Reason For Consultation: Consultation called because of headache, fever, lower extremity bruising. History Of Present Illness: Ms. Rodriguez is 29-year-old right-handed patient with history of m brenda who comes in with about 2 to 3 days of headaches, fevers, and noticed some bruising in the l ower extremities. She noted low-grade fever first and had headache, some stiff neck and noticed a ra sh in the lower extremities. She was seen at the local emergency room and discharged for outpatient followup. She did not improve and came to [facility]. Workup included elevated white blood cell count and elevated protein level. WBCs were initially actually normal at 9.0, but then elevate d to 14.3, sedimentation rate was 38 and went up to 42 and her C-reactive protein was elevated to 186 . Serum protein was elevated at 8.4. She had a lumbar puncture, which was normal, except for slight ly elevated protein of 51. White blood cell count was around 46, with 61% lymphocytes, and she had 5 0 red blood cells. She does have pending HUNTER, rheumatoid factor, complement, and antimyeloperoxidase antibody and total complement in addition to some pending studies such as RPR, Kun-Alba virus, h epatitis panel, mono screen, and HIV 1 and 2. Urinalysis showed 5 to 10 white blood cells, bacteria was 20 to 50, and chemistries show slightly low potassium of 3.2. Iron was low at 9.0, percent trans darrick by low at 2.8. Liver function studies were normal. Procalcitonin is elevated at 3.5, and vit muñiz B12 slightly elevated. Cortisol level was normal. She did receive Rocephin and some steroids i n the emergency room, then a g of Solu-Medrol. After I discussed the case with Dr. Sterling. Her bloo d cultures, CSF cultures all were unremarkable as well as urine cultures. Her headache largely resolved and the rash in the lower extremities by the time I evaluated her also resolved. She has some mild stiff neck and was receiving IV fluids. Past Medical History: As indicated. Surgical History: , appendectomy. Allergies: PSEUDOEPHEDRINE. Medications: No home medications. Family History: Noncontributory. Social History: No alcohol, tobacco, or IV drug use. Review of Systems: Aside from mentioned a 10-point review of systems is negative. Physical Examination: Vital Signs: Blood pressure 115/68, pulse 70, respiratory rate 16, temperature 97.2, oxygen saturati on 99% on room air. Weight 138 pounds, height 5 feet 1 inch, BMI 26. General: Ms. Rodriguez is resting in bed. She is in no acute distress. HEENT: She is normocephalic, atraumatic. Sclerae anicteric. Oropharynx is pink and moist. Neck: Supple. Chest: Clear. Heart: Regular. Extremities: Show no edema, clubbing, or cyanosis. Neurologic: She is alert and oriented to person, place, time, and situation. She has no cranial ner ve deficits on 2 through 12. She has no nuchal rigidity. No Kernig's or Brudzinski signs. Her porter r examination shows 5/5 strength proximally and distally in the upper and lower extremities. Sensory exam is intact in the upper and lower extremities for light touch, pinprick, temperature. Coordinat ion exam is intact in upper and lower extremities. Reflexes 2+ in upper and lower extremities. Gait coordination is also normal. She did receive a brain MRI earlier today. The study is unremarkable, except for a small development al venous anomaly in the right cerebellar hemisphere which is likely to be incidental and of no relat ionship to her current symptoms. Study shows no acute changes. Head CT scan unremarkable. The elec trocardiogram is normal with normal sinus rhythm and chest x-ray shows no acute intrathoracic process es. Assessment: Ms. Rodriguez is a 29-year-old patient with a possible immune mediated condition. She does h ave a history of migraine and she did have very elevated C-reactive protein, reached high sedimentati on rate, and elevated protein slightly actually and CSF with serum protein being elevated. The patie nt's mother reports autoimmune conditions do run in her family, but she is not sure what type. Plan: 1.We will follow up on blood work, including serum protein electrophoresis and we will send out for possible etiology of the autoimmune type reaction. 2.She will have a tapering course of steroids to go home. Also we will taper off her antibiotics an d she will follow up with Dr. Martinez in clinic 1 month after discharge. SANCHO/LEONOR Voice ID: [id number] Report ID: [id number]
[2019-12-12 03:45] LABS: RPR (Rapid Plasma Reagin) NON-REACT (NON-REACT)
[2019-12-14 15:52] LABS: HIV AG/AB 4TH GEN Non-reactive (Non-reactive)
[2019-12-14 21:05] LABS: HBsAG Nonreactive (Nonreactive)
[2019-12-15 22:37] LABS: Albumin, (SPE) 3.2 g/dL (3.8-4.8); Alpha-1-Globulins 0.5 g/dL (0.2-0.3); Alpha-2-Globulins 0.9 g/dL (0.5-0.9); INTERPRETATION REPORT
== END 2019-12-11 16:27 | disposition home or self-care (01) | DRG 866 ==
LOC: ER 21:46 → 4TH 12-10 03:58 → OBSVTOIN 12-10 19:02
PROVIDERS: ADMIT Hospitalist; ATTEND Family Medicine
DX: B34.9 Viral infection, unspecified (principal); N39.0 Urinary tract infection, site not specified; R65.10 Systemic inflammatory response syndrome (SIRS) of non-infectious origin without acute organ dysfunction; D50.9 Iron deficiency anemia, unspecified; G43.909 Migraine, unspecified, not intractable, without status migrainosus; R90.89 Other abnormal findings on diagnostic imaging of central nervous system; E86.0 Dehydration
CPT/HCPCS: 36415; 62270; 70450; 70553; 71045; 80048; 80053; 80074; 80076; 81015; 81025; 82533; 82550; 82607; 82728; 82945; 83540; 83605; 84145; 84157; 84165; 84466; 84484; 85025; 85379; 85384; 85610; 85652; 85730; 86021; 86038; 86140; 86160; 86162; 86308; 86403; 86430; 86592; 86664; 86665; 87040; 87070; 87086; 87088; 87389; 89050; 93005; 96365; 96366; 96375; 99285; A9577; G0378; J0696; J1200; J2270; J2405; J2765; J2930; J3010; J7030; J7512

== ENCOUNTER 2024-07-18 23:19 | Emergency (ER) | payer SELFPAY ==
--- OUTSIDE RECORDS SUMMARY | 2024-07-18 23:23 | XMS REPORT | Continuity of Care Document ---
Author Name Unknown Address [address] [facility] [address] [place] [address] [facility] thconnect Address [address] [facility] [place] [address] Care Team Providers Care Client Care Representative Name Role Phone Koffi Salomon Attending Clinician Unavailable Saji Judd Attending Clinician Koffi Salomon Admitting Clinician Unavailable Payers Payer Name Policy Type Policy Number Effective Date Expirati on Date Source Problems Condition Name Condition Details Condition Category Status Onset Date Resolution Date Last Treatment Date Treating Clinician Comments Source No known active problems No known active problems Disease [facility] Allergies, Adverse Reactions, Alerts Allergy Name Allergy Type Status Severity Reaction(s) Onset Date Inactive Date Treating Clinician Comments Source pseudoep hedrine DA Active U 2019-10 00:00: 00 [facility] pseudoep hedrine DA Active U UNKNOWN 2019-10 00:00: 00 [facility] Pseudoep hedrine Hcl Propensi ty to adverse reaction s Active Rash 2 00:00: 00 [facility] PSEUDOEP HEDRINE HCL DRUG INGREDI Active Rash 12-07 00:00: 00 [facility] NO KNOWN ALLERGIE S Drug Class Active [facility] Social History Social Habit Start Date Stop Date Quantity Comments Source Sex Assigned At [facility] Smoking Status Start Date Stop Date Source Unknown if ever smoked [facility] Medications Ordered Medication Name Filled Medication Name Start Date Stop Date Current Medication? Ordering Clinician Indication Dosage Frequency Signature (SIG) Comments Components Source ketorolac (TORADOL) injection 30 mg 12-07 17:30: 00 12-07 17:10 :00 No 30mg 30 mg, Intramuscu lar, ONCE, 1 dose, Shanique 12/07/19 at 1130, Routine
membership correspondent approving Restricted medication : LUI JOYA [facility] No known medications No Un louis [facility] Vital Signs Vital Name Observation Time Observation Value Comments S ource Systolic blood pressure 2019-12-07 16:05:00 109 mm[Hg] [facility] Diastolic blood pressure 2019-12-07 16:05:00 63 mm[Hg] [facility] Heart rate 2019-12-07 16:05:00 99 /min [facility] Body temperature 2019-12-07 16:05:00 37.28 Whitney [facility] Respiratory rate 2019-12-07 16:05:00 18 /min [facility] Body height 2019-12-07 16:05:00 154.9 cm [facility] Body weight 2019-12-07 16:05:00 58.968 kg [facility] BMI 2019-12-07 16:05:00 24.56 kg/m2 [facility] Oxygen saturation in Arterial blood by Pulse oximetry 2019-12-07 16:05:00 96 /min [facility] Systolic blood pressure 2019-12-07 16:05:00 109 mm[Hg] [facility] Diastolic blood pressure 2019-12-07 16:05:00 63 mm[Hg] [facility] Heart rate 2019-12-07 16:05:00 99 /min [facility] Body temperature 2019-12-07 16:05:00 37.28 Whitney [facility] Respiratory rate 2019-12-07 16:05:00 18 /min [facility] Body height 2019-12-07 16:05:00 154.9 cm [facility] Body weight 2019-12-07 16:05:00 58.968 kg [facility] BMI 2019-12-07 16:05:00 24.56 kg/m2 [facility] Oxygen saturation in Arterial blood by Pulse oximetry 2019-12-07 16:05:00 96 /min [facility] Procedures Procedure Date / Time Performed Performing Clinicia n Source [id number] 2020-09-23 00:00:00 RIVMA [facility] [id number] [facility] 2019-12-07 16:52:00 Wanda Hogue [facility] ADC,CLC OR LCC ONLY - INFLUENZA A & B DIRECT ANTIGEN 2019-12-07 16:09:00 Lui Joya [facility] NOTICE OF PRIVACY PRACTICES 2019-12-07 15:53:07 Doctor Unassigned, Geronimo [facility] Encounters Start Date/Time End Date/Time Encounter Type Admission Type Attending [facility] Care Department Encounter ID Source 2020-09-23 07:00:00 Inpatient Koffi Salomon [facility] OUTD [id number] 50 [facility] 2019-12-07 10:10:15 2019-12-07 11:37:00 Emergency Saji Hogue [facility] [id number] [facility] 2019-12-07 10:10:15 2019-12-07 11:37:00 Emergency Saji Hogue [facility] [id number] 2019-12-07 09:53:00 2019-12-07 09:53:00 Emergency X [facility] ERT [id number] [facility] Results Test Description Test Time Test Comments Results Result Co mments Source COMPREHENSIVE METABOLIC [id number] 08:23:00* Test Item Value Reference Range Interpretation Comme nts SODIUM (test code = NA) 137 mEq/L 134-147 N POTASSIUM (test code = K) 3.7 mEq/L 3.4-5.0 N CHLORIDE (test code = CL) 109 mEq/L 100-108 H CARBON DIOXIDE (test code = CO2) 22 mEq/l 21-33 N ANION GAP (test code = GAP) 9 0-20 N GLUCOSE (test code = GLU) 76 mg/dL 70-110 N BLOOD UREA NITROGEN (test code = BUN) < 5 mg/dL 7-18 L GLOMERULAR FILTRATION RATE (test code = GFR) 187.4 105-110 H Units of measure = ml/min/1.73 m2 CREATININE (test code = CREAT) 0.4 mg/dL 0.6-1.3 L TOTAL PROTEIN (test code = PROT) 4.7 g/dL 6.4-8.2 L ALBUMIN (test code = ALB) 2.10 g/dL 3.4-5.0 L CALCIUM (test code = CA) 8.1 mg/dL 8.0-10.5 N BILIRUBIN TOTAL (test code = BILT) 0.30 mg/dL 0.0-1.0 N SGOT/AST (test code = AST) 22 IUnit/L 15-37 N SGPT/ALT (test code = ALT) 8 IUnit/L 30-65 L ALKALINE PHOSPHATASE TOTAL (test code = ALKP) 130 IUnit/L 20-125 H CBC W/AUTO [id number] 08:03:00* Test Item Value Reference Range Interpretation Comme nts WHITE BLOOD CELL (test code = WBC) 15.2 x10 3/uL 4.5-11.0 H RED BLOOD CELL (test code = RBC) 3.92 x10 6/uL 3.54-5.02 N HEMOGLOBIN (test code = HGB) 9.9 g/dL 11.0-15.0 L HEMATOCRIT (test code = HCT) 33.0 % 33.0-45.0 N MEAN CELL VOLUME (test code = MCV) 84.2 fL 81.0-99.0 N MEAN CELL HGB (test code = MCH) 25.3 pg 27.0-33.0 L MEAN CELL HGB CONCETRATION (test code = MCHC) 30.0 g/dL 33.0-37.0 L RED CELL DISTRIBUTION WIDTH CV (test code = RDW) 22.1 % 11.5-14.5 H RED CELL DISTRIBUTION WIDTH SD (test code = RDW-SD) 65.9 fL 37.0-54.0 H PLATELET COUNT (test code = PLT) 229 x10 3/uL 150-400 N MEAN PLATELET VOLUME (test code = MPV) 10.4 fL 7.0-9.0 H NEUTROPHIL % (test code = NT%) 82.8 % 56.0-77.0 H IMMATURE GRANULOCYTE % (test code = IG%) 0.7 % 0.0-2.0 N LYMPHOCYTE % (test code = LY%) 8.5 % 14.0-32.0 L MONOCYTE % (test code = MO%) 6.3 % 4.8-9.0 N EOSINOPHIL % (test code = EO%) 1.5 % 0.3-3.7 N BASOPHIL % (test code = BA%) 0.2 % 0.0-2.0 N NUCLEATED RBC % (test code = NRBC%) 0.0 % 0-0 N NEUTROPHIL # (test code = NT#) 12.61 x10 3/uL 2.0-7.6 H IMMATURE GRANULOCYTE # (test code = IG#) 0.11 x10 3/uL 0.00-0.03 H LYMPHOCYTE # (test code = LY#) 1.29 x10 3/uL 1.0-3.8 N MONOCYTE # (test code = MO#) 0.96 x10 3/uL 0.1-0.8 H EOSINOPHIL # (test code = EO#) 0.23 x10 3/uL 0.0-0.2 H BASOPHIL # (test code = BA#) 0.03 x10 3/uL 0.0-0.2 N NUCLEATED RBC # (test code = NRBC#) 0.00 x10 3/uL 0.0-0.1 N MANUAL DIFF REQUIRED (test code = MDIFF) NO CBC W/AUTO [id number] 07:51:00* Test Item Value Reference Range Interpretation Comme nts WHITE BLOOD CELL (test code = WBC) x10 3/uL 4.5-11.0 RED BLOOD CELL (test code = RBC) x10 6/uL 3.54-5.02 HEMOGLOBIN (test code = HGB) g/dL 11.0-15.0 HEMATOCRIT (test code = HCT) 33.0 % 33.0-45.0 N MEAN CELL VOLUME (test code = MCV) fL 81.0-99.0 MEAN CELL HGB (test code = MCH) pg 27.0-33.0 MEAN CELL HGB CONCETRATION ( test code = MCHC) g/dL 33.0-37.0 RED CELL DISTRIBUTION WIDTH CV (test code = RDW) % 11.5-14.5 PLATELET COUNT (test code = PLT) 229 x10 3/uL 150-400 N NEUTROPHIL % (test code = NT%) % 56.0-77.0 LYMPHOCYTE % (test code = LY%) % 14.0-32.0 NEUTROPHIL # (test code = NT#) x10 3/uL 2.0-7.6 LYMPHOCYTE # (test code = LY#) x10 3/uL 1.0-3.8 MANUAL DIFF REQUIRED (test c ode = MDIFF) Novel Coronavirus 2019 [id number] 21:00:00* Test Item Value Reference Range Interpretation Comme nts Novel Coronavirus 2019 Inhouse (test code = COVNONPUI) Negative Negative Positive resul ts are indicative of the presence [id number] RNA, clinical correlation with patient historyand other diagnostic information is necessary to determinepatient infection status. Positive results do not rule outbacterial infection or co-infection with other viruses. Negative results do not preclude SARS-CoV-2 infection andshould not be used as the sole basis for patient managementdecisions. Negative results must be combined with otherclinical observations, patient history, and epidemiologicalinformation . Detection of SARS-CoV-2 RNA may be affected bysample collection methods, storage conditions, and/or stageof infection. Viral RNA mutations, vaccinations, antiviraltherapeutics, antibiotics, chemotherapeutic orimmunosuppressant drugs have not been evaluated for effectson detection. Results are for the identification of SARS-CoV-2 RNA usingthe [employer]rec000 System under the FDA Emergency UseAuthorization. The testing is performed by personneltrained in the procedures for the K[employer] M2000 moleculardiagnostic SARS-CoV-2 assay in vitro. RAPID PLASMA [id number] 11:53:00* Test Item Value Reference Range Interpretation Comme nts RAPID PLASMA REAGIN (test co de = RPR) NONREACTIVE NONREACTIVE AG HEPATITIS B [id number] 11:53:00* Test Item Value Reference Range Interpretation Comme nts AG HEPATITIS B SURFACE (test code = HBSAG) NON REACTIVE INDEX NonReactive AB HIV 1 11:53:00* Test Item Value Reference Range Interpretation Comme nts AB HIV 1 2 (test code = HPT15JZ) NONREACTIVE INDEX NONREACTIVE RAPID PLASMA [id number] 11:35:00* Test Item Value Reference Range Interpretation Comme nts RAPID PLASMA REAGIN (test code = RPR) NONREACTI VE AG HEPATITIS B [id number] 11:35:00* Test Item Value Reference Range Interpretation Comme nts AG HEPATITIS B SURFACE (test code = HBSAG) NON REACTIVE INDEX NonReactive AB HIV 1 11:35:00* Test Item Value Reference Range Interpretation Comme nts AB HIV 1 2 (test code = EGQ40CR) NONREACTIVE INDEX NONREACTIVE [id number] 11:05:00* Test Item Value Reference Range Interpretation Comme nts CREATININE (test code = CREAT) 0.4 mg/dL 0.6-1.3 L CBC W/AUTO [id number] 10:34:00* Test Item Value Reference Range Interpretation Comme nts WHITE BLOOD CELL (test code = WBC) 12.2 x10 3/uL 4.5-11.0 H RED BLOOD CELL (test code = RBC) 4.30 x10 6/uL 3.54-5.02 N HEMOGLOBIN (test code = HGB) 10.6 g/dL 11.0-15.0 L HEMATOCRIT (test code = HCT) 36.1 % 33.0-45.0 N MEAN CELL VOLUME (test code = MCV) 84.0 fL 81.0-99.0 N MEAN CELL HGB (test code = MCH) 24.7 pg 27.0-33.0 L MEAN CELL HGB CONCETRATION (test code = MCHC) 29.4 g/dL 33.0-37.0 L RED CELL DISTRIBUTION WIDTH CV (test code = RDW) 21.2 % 11.5-14.5 H RED CELL DISTRIBUTION WIDTH SD (test code = RDW-SD) 62.4 fL 37.0-54.0 H PLATELET COUNT (test code = PLT) 216 x10 3/uL 150-400 N MEAN PLATELET VOLUME (test c ode = MPV) 9.6 fL 7.0-9.0 H NEUTROPHIL % (test code = NT%) 80.8 % 56.0-77.0 H IMMATURE GRANULOCYTE % (test code = IG%) 1.1 % 0.0-2.0 N LYMPHOCYTE % (test code = LY%) 10.5 % 14.0-32.0 L MONOCYTE % (test code = MO%) 6.2 % 4.8-9.0 N EOSINOPHIL % (test code = EO%) 1.1 % 0.3-3.7 N BASOPHIL % (test code = BA%) 0.3 % 0.0-2.0 N NUCLEATED RBC % (test code = NRBC%) 0.0 % 0-0 N NEUTROPHIL # (test code = NT#) 9.83 x10 3/uL 2.0-7.6 H IMMATURE GRANULOCYTE # (test code = IG#) 0.13 x10 3/uL 0.00-0.03 H LYMPHOCYTE # (test code = LY#) 1.28 x10 3/uL 1.0-3.8 N MONOCYTE # (test code = MO#) 0.76 x10 3/uL 0.1-0.8 N EOSINOPHIL # (test code = EO#) 0.14 x10 3/uL 0.0-0.2 N BASOPHIL # (test code = BA#) 0.04 x10 3/uL 0.0-0.2 N NUCLEATED RBC # (test code = NRBC#) 0.00 x10 3/uL 0.0-0.1 N MANUAL DIFF REQUIRED (test c ode = MDIFF) NO CBC W/AUTO [id number] 10:33:00* Test Item Value Reference Range Interpretation Comme nts WHITE BLOOD CELL (test code = WBC) x10 3/uL 4.5-11.0 RED BLOOD CELL (test code = RBC) x10 6/uL 3.54-5.02 HEMOGLOBIN (test code = HGB) g/dL 11.0-15.0 HEMATOCRIT (test code = HCT) 36.1 % 33.0-45.0 N MEAN CELL VOLUME (test code = MCV) fL 81.0-99.0 MEAN CELL HGB (test code = MCH) pg 27.0-33.0 MEAN CELL HGB CONCETRATION ( test code = MCHC) g/dL 33.0-37.0 RED CELL DISTRIBUTION WIDTH CV (test code = RDW) % 11.5-14.5 PLATELET COUNT (test code = PLT) 216 x10 3/uL 150-400 N NEUTROPHIL % (test code = NT%) % 56.0-77.0 LYMPHOCYTE % (test code = LY%) % 14.0-32.0 NEUTROPHIL # (test code = NT#) x10 3/uL 2.0-7.6 LYMPHOCYTE # (test code = LY#) x10 3/uL 1.0-3.8 MANUAL DIFF REQUIRED (test c ode = MDIFF) POCT [id number] 16:52:00* Test Item Value Reference Range Interpretation Comme nts POCT PREG (test code = 1605) negative On board controls acceptable with C Line (test code = 3574) present POCT PREG LOT # (test code = 3575) [id number] POCT PREG TEST DATE ( test code = 3576) 2021-05-10 Lab Interpretation (test cod e = 46669-6) [facility] A & B DIRECT [id number] 16:47:00* Test Item Value Reference Range Interpretation Comme nts Influenza A (test code = 59254-8) Negative Negative Influenza B (test code = 35648-8) Negative Negative Lab Interpretation (test cod e = 09265-1) Normal [facility] Notes Date/Time Note Provider Source 2020-09-25 13:16:00 [facility] ([facility]) OB Disch REPORT#:[id number] REPORT STATUS: Signed DATE:09/25/20 TIME: 1316 PATIENT: ONDINA CRUZ UNIT #: [id number] ROOM/BED: [place] [id number] : 90 AGE: 30 SEX: F ATTEND: Koffi Salomon MD ADM AUTHOR: Mesha Corcoran MD * ALL edits or amendments must be made on the electronic/computer document * Subjective Subjective Admission EGA: Weeks: 39 Days: 1 Status/day: post operative (day 2) Comments: SEE NOTE WRITTEN TODAY Objective General VS: Vital Signs Date Temp Pulse Resp B/P B/P Mean Pulse Ox FiO2 09/24-09/25 97.4-97.9 73-98 16-17 110-118/73-77 96-100 Last Documented: Result Date Time Pulse Ox 96 09/25 0716 B/P 118/77 09/25 0716 Temp 97.9 09/25 0716 Pulse 81 09/25 0716 Resp 17 09/25 0716 B/P Mean 87.0 09/23 1120 PATIENT WEIGHT: Weight (lb): 162 Weight (oz): Weight (kg): 73.482 Results Findings/Data: Laboratory Tests 09/24 500 Chemistry Sodium (134 - 147 mEq/L) 137 Potassium (3.4 - 5.0 mEq/L) 3.7 Chloride (100 - 108 mEq/L) 109 H Carbon Dioxide (21 - 33 mEq/l) 22 Anion Gap (0 - 20) 9 BUN (7 - 18 mg/dL) < 5 L Creatinine (0.6 - 1.3 mg/dL) 0.4 L Glomerular Filtr Rate (105 - 110) 187.4 H Glucose (70 - 110 mg/dL) 76 Calcium (8.0 - 10.5 mg/dL) 8.1 Total Bilirubin (0.0 - 1.0 mg/dL) 0.30 AST (15 - 37 IUnit/L) 22 ALT (30 - 65 IUnit/L) 8 L Total Alk Phosphatase (20 - 125 IUnit/L) 130 H Total Protein (6.4 - 8.2 g/dL) 4.7 L Albumin (3.4 - 5.0 g/dL) 2.10 L Laboratory Tests 09/24 050 Hematology WBC (4.5 - 11.0 x10 3/uL) 15.2 H RBC (3.54 - 5.02 x10 6/uL) 3.92 Hgb (11.0 - 15.0 g/dL) 9.9 L Hct (33.0 - 45.0 %) 33.0 MCV (81.0 - 99.0 fL) 84.2 MCH (27.0 - 33.0 pg) 25.3 L MCHC (33.0 - 37.0 g/dL) 30.0 L RDW (11.5 - 14.5 %) 22.1 H Plt Count (150 - 400 x10 3/uL) 229 MPV (7.0 - 9.0 fL) 10.4 H Neut % (Auto) (56.0 - 77.0 %) 82.8 H Lymph % (Auto) (14.0 - 32.0 %) 8.5 L Shannon % (Auto) (4.8 - 9.0 %) 6.3 Eos % (Auto) (0.3 - 3.7 %) 1.5 Baso % (Auto) (0.0 - 2.0 %) 0.2 Neut # (Auto) (2.0 - 7.6 x10 3/uL) 12.61 H Lymph # (Auto) (1.0 - 3.8 x10 3/uL) 1.29 Shannon # (Auto) (0.1 - 0.8 x10 3/uL) 0.96 H Eos # (Auto) (0.0 - 0.2 x10 3/uL) 0.23 H Baso # (Auto) (0.0 - 0.2 x10 3/uL) 0.03 Abs Immat Gran (auto) (0.00 - 0.03 x10 3/uL) 0.11 H Add Manual Diff NO Immature Gran % (0.0 - 2.0 %) 0.7 Nucleated RBC % (0 - 0 %) 0.0 Nucleated RBCs # (Man) (0.0 - 0.1 x10 3/uL) 0.00 Results: no new labs, labs reviewed, vital signs stable Discharge Summary General Date of admission: Date of admission: 09/23/20 Admission diagnosis: 39 weeks, prev c/section, desires sterilization Hospital course: repeat admit, tubal ligation w/, general anesthesia, nml postop/postpart care Procedures: spinal anesthesia, repeat CS delivery, tubal ligation at CS Discharge condition: stable Discharge to: Home/Self Care Discharge diagnosis: 39 weeks previous c/section, desirered sterilization Discharge management: less than 30 mins Time spent: >50% spent on counseling/coordination of care: yes Baby A: status: live born Gender: female 1 minute: 8 5 minutes: 9 Nursing data: The data set between the solid lines has been imported from nursing documentation. Any exceptions have been noted below under Provider comments. Delivery date infant A: 09/23/20 Delivery time A: 0753 Birthweight (gm) infant A: 3830 Feeding preference: Gender infant A: Female 1 minute infant A: 8 5 minutes infant A: 9 10 minutes A: Provider comments on imported nursing data: [] Plan: routine care, discharge today Discharge Instructions Instructions: routine instr sheet given Diet: Regular Activity: As Tolerated, No Driving, No [place] for 6 Wks, No Lifting >10lbs, No Sports/Activities, No Strenuous Activity, No Swimming, Nothing in vagina pre f/u, Shower Only Additional discharge routines: Attending Follow-Up Wound/dressing care: Clean wound daily, Keep wound clean and dry, Leave steri strips Discharge meds: Continue taking these medications: PNV/FE FUM/FA ( MULTIVITAMIN) 28 MG IRON-800 MCG TAB 1 TABLET ORAL DAILY. Start taking the following new medications: FERROUS SULFATE (FEOSOL) 325 MG TAB 325 MILLIGRAM ORAL DAILY. Qty = 30 Refills = 1 HYDROcodone/APAP (NORCO 5/325) 1 TAB TAB 1-2 TABLET ORAL EVERY 6 HOURS NEEDED. as needed for PAIN Qty = 10 No Refills IBUPROFEN (MOTRIN) 800 MG TAB 800 MILLIGRAM ORAL EVERY 8 HOURS. Qty = 30 No Refills Prescriptions: e-prescribe Consultation(s): Consultation performed: anesthesia, exchange underwriting consultant at 1322 RPT #:[id number] END OF REPORT [facility] 2020-09-25 13:06:00 [facility] ([facility]) OB Postpart Progr Note REPORT#:[id number] REPORT STATUS: Signed DATE:09/25/20 TIME: 1306 PATIENT: ONDINA CRUZ UNIT #: [id number] ROOM/BED: [place] [id number] : 90 AGE: 30 SEX: F ATTEND: Koffi Salomon MD ADM AUTHOR: Mesha Corcoran MD * ALL edits or amendments must be made on the electronic/computer document * Subjective Subjective Admission EGA: Weeks: 39 Days: 1 Status/Day: post operative (Day 2) Patient reports: Patient reports: Yes no complaints, Yes normal lochia, Yes pain management effective, Yes tolerating po well, Yes voiding well, Yes voiding without pain, Yes tolerating ambulation, Yes flatus, No excessive bleeding, No abdominal pain Objective Nursing Documentation Review Nursing Data: The data set between the solid lines has been imported from nursing documentation. Any exceptions have been noted below under Provider comments. Feeding preference: Provider comments on imported nursing data: [] General VS: Vital Signs: Date Time Temp Pulse Resp B/P B/P Pulse O2 O2 Flow FiO2 Mean Ox Delivery Rate 09/25 0716 97.9 81 17 118/77 96 09/25 0200 97.4 73 16 110/73 100 09/24 2100 97.7 98 16 118/76 100 PATIENT WEIGHT: Weight (lb): 162 Weight (oz): Weight (kg): 73.482 Physical Exam Neuro: Exam: alert, oriented x3, normal speech Abdomen: soft, no abnormal tenderness, no guarding Incision site: well approximated edges, dry, no drainage Uterus: firm, involution appropriate Fundus: firm, at the umbilicus Lochia: normal Vulva/Perineum: mons edematous from too tight binder when sitting- pt to loosen binder when sitting Lower extremities: Edema: trace Calf tenderness: negative Result Results: no new labs, vitl signs stable Diagnosis, Assessment Plan Diagnosis, Assessment Plan Assessment: nml progress Plan: routine care, discharge today Consultation(s): Consultation performed: anesthesia Plan discussed with: patient, spouse/partner, nurse Comments: Discussed discharge instructions with pt and at 1313 RPT #:[id number] END OF REPORT [facility] 2020-09-24 07:45:00 [facility] ([facility]) OB Postpart Progr Note REPORT#:[id number] REPORT STATUS: Signed DATE:09/24/20 TIME: 0745 PATIENT: ONDINA CRUZ UNIT #: [id number] ROOM/BED: [place] [id number] : 90 AGE: 30 SEX: F ATTEND: Koffi Salomon MD ADM AUTHOR: Mesha Corcoran MD * ALL edits or amendments must be made on the electronic/computer document * Subjective Subjective Admission EGA: Weeks: 39 Days: 1 Status/Day: post operative (Day 1) Patient reports: Patient reports: Yes no complaints, Yes normal lochia, Yes pain management effective, Yes tolerating po well, Yes voiding well, Yes voiding without pain, Yes tolerating ambulation, Yes flatus, No bowel movement, No nausea, No vomiting, No excessive bleeding Objective Nursing Documentation Review Nursing Data: The data set between the solid lines has been imported from nursing documentation. Any exceptions have been noted below under Provider comments. Feeding preference: Provider comments on imported nursing data: [] General VS: Vital Signs: Date Time Temp Pulse Resp B/P B/P Pulse O2 O2 Flow FiO2 Mean Ox Delivery Rate 09/24 0459 98.9 86 18 122/60 96 09/23 2300 99.0 83 18 114/65 96 09/23 2029 99.2 100 18 109/59 96 09/23 1630 99.0 72 18 109/59 100 09/23 1129 75 96 09/23 1124 78 98 09/23 1120 87.0 09/23 1120 77 114/71 09/23 1119 75 97 09/23 1114 84 97 09/23 1109 77 97 09/23 1105 89.0 09/23 1105 82 16 127/73 98 09/23 1104 77 97 09/23 1059 77 97 09/23 1054 93 98 09/23 1050 94.0 09/23 1050 75 122/74 09/23 1050 16 99 09/23 1049 77 98 09/23 1044 72 99 09/23 1039 82 99 09/23 1035 83.0 09/23 1035 80 128/68 09/23 1035 16 100 09/23 1034 86 99 09/23 1029 80 99 09/23 1028 78 90 14 1024 83 98 /14 1020 99.0 09/23 1020 73 130/81 09/23 1020 16 100 09/23 1019 79 100 /14 1014 81 99 /14 1009 75 100 /14 1007 80.0 /14 1007 70 117/59 14 1007 72 98 /14 1004 79 100 /14 0959 72 100 /14 0955 80.0 /14 0955 70 119/56 /14 0954 69 100 /14 0949 81 100 /14 0944 68 100 /14 0939 79 100 /14 0935 98.0 14 0935 75 16 133/75 100 /14 0934 78 100 /14 0929 94 100 / 0924 88 100 09/23 0921 99.0 09/23 0921 97.8 99 16 127/81 98 /14 0919 81 100 PATIENT WEIGHT: Weight (lb): 162 Weight (oz): Weight (kg): 73.482 Physical Exam Neuro: Exam: alert, oriented x3, normal speech Abdomen: soft, no abnormal tenderness, no guarding Incision site: well approximated edges, dry, no drainage Uterus: firm, involution appropriate Fundus: firm, at the umbilicus Lochia: normal Lower extremities: Edema: trace Calf tenderness: negative Result Findings/Data: Laboratory Tests: 09/24 0500 Hematology Hct (33.0 - 45.0 %) 33.0 Plt Count (150 - 400 x10 3/uL) 229 ordered CBC nurse checking with lab to see why only got hct and plt Results: labs reviewed, vitl signs stable Diagnosis, Assessment Plan Diagnosis, Assessment Plan Assessment: nml progress Plan: routine care Consultation(s): Consultation performed: anesthesia Plan discussed with: patient Comments: Pt may want to go home tomorrow at 0800 RPT #:[id number] END OF REPORT [facility] 2020-09-24 06:49:00 [id number] [facility] on [address] [address] PATIENT NAME: ONDINA CRUZ ADMIT DATE: 09/23/20 ACCOUNT NO: [id number] ROOM NO: [facility] AGE: 30 REPORT TYPE: OPERATIVE REPORT SEX: F ADMITTING PHYSICIAN:Mesha Corcoran MD ATTENDING PHYSICIAN:Koffi Salomon MD OPERATION DATE: 09/23/2020 PREOPERATIVE DIAGNOSES: A 39 weeks, previous section x3, and desires sterilization. POSTOPERATIVE DIAGNOSES: A 39 weeks, previous section x3, and desires sterilization. PROCEDURE: Repeat low cervical transverse section and bilateral tubal ligation. SURGEON: Mesha Corcoran MD. TELECOMMUNICATIONS CLERK: DAYAN Daley. ANESTHESIA: Spinal anesthesia. ESTIMATED BLOOD LOSS: 600 mL. QUANTITATIVE BLOOD LOSS: 458 mL. URINE OUTPUT: 500 mL. DRAINS: Gaitan. COMPLICATIONS: None. FINDINGS: The patient delivered a male with Apgars of 8 and 9 from the vertex presentation, 8 pounds 10 ounces, 3830 gm, clear amniotic fluid. Nuchal cord x2 reduced. Spontaneous placenta intact, 3-vessel cord, normal uterus. Ovaries and tubes were normal bilaterally. The placenta was spontaneous and intact. PROCEDURE IN DETAIL: The patient was taken to the operating room. After spinal anesthesia, she was placed in the left lateral tilt position and prepped and draped in the usual manner for an abdominal procedure. Time-out was carried out. After adequate levels of spinal anesthesia were confirmed, a Pfannenstiel incision was made with the scalpel, excising the old scar. The Bovie was used to carry the incision down to the fascia. The fascia was then incised with a scalpel and then the incision was extended in elliptical fashion with curved Walsh scissors. The fascia was then grasped with [facility] clamps anteriorly and the muscle was from the fascia using both blunt and sharp dissection. The same procedure was carried out inferiorly. The muscle was then taken down PATIENT NAME: ONDINA CRUZ with the scalpel at the midline and then the peritoneum was entered with the Metzenbaums. There was quite a bit of scarring of the bladder to the lower uterine segment. This was taken down. The window was intact, but very thin and an incision was made transversely with the scalpel and the incision was extended bluntly in a transverse fashion. The baby was encountered vertex. The head was delivered. The nose and mouth were suctioned and the rest of the baby was delivered after the cords had been reduced atraumatically. The nose and mouth were suctioned again. The cord was doubly clamped and cut and the baby handed to the nurse in attendance. The baby was vigorous and crying. The segment of cord was held for cord gases and then the fluid was sent. The placenta was then delivered spontaneously intact. The uterus was exteriorized and cleaned out well. Drake clamps were placed on the incisions and then the hysterotomy incision was closed with continuous locking suture of 1-0 chromic suture starting at each angle and meeting at the midline. There was some bleeding at the midline, which was made hemostatic with 2 [id number] of 0 chromic suture. The retrouterine space was then irrigated. At this point, the tubal ligation was carried out. The tube on the right was grasped with a [place]. A knuckle was formed and then tied with 0 plain suture and then 2 separate ties were placed on each side of the knuckle before the segment was excised with the Metzenbaum scissors, and the ends were cauterized. The same procedure was carried out on the contralateral side. Hemostasis was excellent. The lateral colic gutters on the right were irrigated. There was scarring on the left side, but did not obviate too much irrigation. The uterus was replaced back into the pelvic cavity and the Interceed was placed over the incision. The peritoneum was closed with a continuous 2-0 chromic suture. The muscle was reapproximated using simple interrupted sutures of 2-0 chromic. The fascia was then closed with continuous suture of 0 PDS on a loop starting at each angle and meeting at the midline. Subcutaneous layer was then irrigated, any bleeders were cauterized, and then this layer was reapproximated using continuous suture of 2-0 plain. The skin was then closed with a subcuticular 3-0 Monocryl and then Steri-Strips were applied, Telfa, ABD, and binder. Sponge, instrument, and needle count were correct. The patient tolerated the procedure well and went to the recovery room in stable condition. Dictated By: Mesha Corcoran MD WT: OP:G.LEONARDA/REBEKAH/NTS Conf#: [id number]/DID#: [id number] Authenticated by Mesha Corcoran MD On 09/29/2020 11:25:40 PM at 2326 PATIENT NAME: ONDINA CRUZ [facility] 2020-09-23 08:53:00 [facility] ([facility]) OB Delivery Note REPORT#:[id number] REPORT STATUS: Signed DATE:09/23/20 TIME: 852 PATIENT: ONDINA CRUZ UNIT #: [id number] ROOM/BED: [place] [id number] : 90 AGE: 30 SEX: F ATTEND: Koffi Salomon MD ADM AUTHOR: Mesha Corcoran MD * ALL edits or amendments must be made on the electronic/computer document * OB Delivery Pre-delivery GBS status: GBS status: negative evaluation at delivery: NRP certified personnel Admission EGA: Weeks: 39 Days: 1 Baby A Information Baby A information Delivery date: 09/23/20 Delivery time: 075 status: live born Wt of baby (grams): 3830 Wt of baby (lbs/oz): 8 lbs 10 oz Gender: male 1 minute: 8 5 minutes: 9 Presentation: vertex ABG details Baby A Cord blood gases: not collected Nuchal cord Baby A Nuchal cord: yes (loose and reduced), double Delivery section indication: elective repeat Priority: scheduled Antibiotic prior to incision: 1 dose )(SCDs applied activated: Yes Uterine incision: low transverse Uterine scar: intact Consent: indication discussed, questions answered, pt consent to op delivery Mother's condition: mother stable Infant's condition: infant stable in room Op/Inv Proc Note - Brief )( Procedure(s) performed: repeat low transverse c/s, bilateral tubal ligation )( Primary Surgeon: Mesha Corcoran MD )( Director Business Management(s): DAYAN Thomas )( Pre-procedure diagnosis: 39 weeks, previous c/section, desires sterilization )( Post-procedure diagnosis: same Anesthesia: spinal anesthesia )( QBL (ml's): 458 )( Estimated blood loss (ml): 600 )( Specimen removed/altered: placenta and bilateral tubal segments )( Complications: none Drain(s): gaitan Urine output: 500cc )( Finding(s): 3 vessel cord, spontaneous placenta intact, uterus nl and ovaries and tubes normal Condition: stable Blood Loss/Details Blood loss at delivery: <1000 ml, no more than expected QBL at delivery (ml's): 458 EBL at delivery (ml's): 600 at 0018 RPT #:[id number] END OF REPORT [facility] 2020-09-23 08:53:00 [facility] ([facility]) OB Delivery Note REPORT#:[id number] REPORT STATUS: Signed DATE:09/23/20 TIME: 852 PATIENT: ONDINA CRUZ UNIT #: [id number] ROOM/BED: [place] [id number] : 90 AGE: 30 SEX: F ATTEND: Koffi Salomon MD ADM AUTHOR: Mesha Corcoran MD * ALL edits or amendments must be made on the electronic/computer document * See Addendum OB Delivery Pre-delivery GBS status: GBS status: negative evaluation at delivery: NRP certified personnel Admission EGA: Weeks: 39 Days: 1 Baby A Information Baby A information Delivery date: 09/23/20 Delivery time: 0758 status: live born Wt of baby (grams): 3830 Wt of baby (lbs/oz): 8 lbs 10 oz Gender: male 1 minute: 8 5 minutes: 9 Presentation: vertex ABG details Baby A Cord blood gases: not collected Nuchal cord Baby A Nuchal cord: yes (loose and reduced), double Delivery section indication: elective repeat Priority: scheduled Antibiotic prior to incision: 1 dose )(SCDs applied activated: Yes Uterine incision: low transverse Uterine scar: intact Consent: indication discussed, questions answered, pt consent to op delivery Mother's condition: mother stable 's condition: infant stable in room Op/Inv Proc Note - Brief )( Procedure(s) performed: repeat low transverse c/s, bilateral tubal ligation )( Primary Surgeon: Mesha Corcoran MD )( Director Business Management(s): DAYAN Thomas )( Pre-procedure diagnosis: 39 weeks, previous c/section, desires sterilization )( Post-procedure diagnosis: same Anesthesia: spinal anesthesia )( QBL (ml's): 458 )( Estimated blood loss (ml): 600 )( Specimen removed/altered: placenta and bilateral tubal segments )( Complications: none Drain(s): gaitan Urine output: 500cc )( Finding(s): 3 vessel cord, spontaneous placenta intact, uterus nl and ovaries and tubes normal Condition: stable Blood Loss/Details Blood loss at delivery: <1000 ml, no more than expected QBL at delivery (ml's): 458 EBL at delivery (ml's): 600 at 0018 Addendum 1: 09/24/20 0649 by Mesha Corcoran MD conf # [id number] at 0649 RPT #:[id number] END OF REPORT [facility] 2020-09-23 08:53:00 [facility] ([facility]) OB Delivery Note REPORT#:[id number] REPORT STATUS: Signed DATE:09/23/20 TIME: 852 PATIENT: ONDINA CRUZ UNIT #: [id number] ROOM/BED: [place] [id number] : 90 AGE: 30 SEX: F ATTEND: Koffi Salomon MD ADM AUTHOR: Mesha Corcoran MD * ALL edits or amendments must be made on the electronic/computer document * See Addendum OB Delivery Pre-delivery GBS status: GBS status: negative evaluation at delivery: NRP certified personnel Admission EGA: Weeks: 39 Days: 1 Baby A Information Baby A information Delivery date: 09/23/20 Delivery time: 0758 status: live born Wt of baby (grams): 3830 Wt of baby (lbs/oz): 8 lbs 10 oz Gender: male 1 minute: 8 5 minutes: 9 Presentation: vertex ABG details Baby A Cord blood gases: not collected Nuchal cord Baby A Nuchal cord: yes (loose and reduced), double Delivery section indication: elective repeat Priority: scheduled Antibiotic prior to incision: 1 dose )(SCDs applied activated: Yes Uterine incision: low transverse Uterine scar: intact Consent: indication discussed, questions answered, pt consent to op delivery Mother's condition: mother stable Infant's condition: infant stable in room Op/Inv Proc Note - Brief )( Procedure(s) performed: repeat low transverse c/s, bilateral tubal ligation )( Primary Surgeon: Mesha Corcoran MD )( Director Business Management(s): DAYAN Thomas )( Pre-procedure diagnosis: 39 weeks, previous c/section, desires sterilization )( Post-procedure diagnosis: same Anesthesia: spinal anesthesia )( QBL (ml's): 458 )( Estimated blood loss (ml): 600 )( Specimen removed/altered: placenta and bilateral tubal segments )( Complications: none Drain(s): gaitan Urine output: 500cc )( Finding(s): 3 vessel cord, spontaneous placenta intact, uterus nl and ovaries and tubes normal Condition: stable Blood Loss/Details Blood loss at delivery: <1000 ml, no more than expected QBL at delivery (ml's): 458 EBL at delivery (ml's): 600 at 0018 Addendum 1: 09/24/20 0649 by Mesha Corcoran MD conf # [id number] at 0649 Addendum 2: 09/24/20 0756 by Mesha Corcoran MD Pt delivered a girl not a boy at 0756 RPT #:[id number] END OF REPORT [facility] 2020-09-19 14:36:00 [facility] ([facility]) OB Admission / H P REPORT#:[id number] REPORT STATUS: Signed DATE:09/19/20 TIME: 1436 PATIENT: ONDINA CRUZ UNIT #: [id number] ROOM/BED: [place] [id number] : 90 AGE: 30 SEX: F ATTEND: Koffi Salomon MD ADM AUTHOR: Mesha Corcoran MD * ALL edits or amendments must be made on the electronic/computer document * OB History Chief complaint: scheduled HPI: Pt is admitted for repeat c/section and bilateral tubal ligation. She has not had any problems with this . She has a hx of hemorrage with first which she states went into shock and required a blood transfusion. She states she was anemic with last two pregnancies and required blood transfusion with last two c/sections. history: : 7 Term: 3 : 0 Abortus: 3 Living children: 3 Previous : unknown uterine incision Number of prev : 3 Indication for prior : repeat elective Comments: Pp transfusions with all three pregnancies. Uterine atony first c/s Current : Admission EGA (weeks) 39 Admission EGA (days) 1 Conditions of : anemia, previous uterine incision, desires sterilization Notes: SEE RECORDS Past medical history: denies PMH Past surgical history: (X3), appendectomy Social history: , no alcohol use, no tobacco use, no drug use Allergies Coded Allergies: pseudoephedrine (From SUDAFED) (UNKNOWN 09/17/20) Objective General VS: AFVSS PATIENT WEIGHT: Weight (lb): Weight (oz): Weight (kg): Physical Exam HEENT: normocephalic w/o injury Cardiac: regular rate and rhythm, no clinically sig murmur Lungs: clear to auscultation, no rales Breasts: deferred Neuro: Exam: alert, oriented x3, normal speech, CNII-XII grossly intact Abdomen: gravid, soft, no abnormal tenderness Membranes: Membranes: Intact Lower extremities: Edema: trace Baby A: Baby A FHR category: category 1 Diagnosis, Assessment Plan Diagnosis, Assessment Plan Assessment/Impression: previous C/S, for repeat, normal FHR pattern, desires permanent sterilization Plan: scheduled (bilateral tubal ligation) Reason-sched C section: elective repeat Consultation(s): Consultation performed: anesthesia Plan discussed with: patient, spouse/partner, nurse at 0853 RPT #:[id number] END OF REPORT [facility] 2020-09-18 06:16:00 [facility] ([facility]) OB Admission / H P REPORT#:[id number] REPORT STATUS: Signed DATE:09/18/20 TIME: 615 PATIENT: ONDINA CRUZ UNIT #: [id number] ROOM/BED: [place] [id number] : 90 AGE: 30 SEX: F ATTEND: Koffi Salomon MD ADM AUTHOR: Koffi Salomon MD * ALL edits or amendments must be made on the electronic/computer document * OB History Chief complaint: scheduled HPI: ENTIRE HX/PX IS IN PAPER FORM ATTACHED, IF IT HAS BECOME DETACHED CALL OFFICE FOR REPLACEMENT AND DO NOT CODE THIS INCOMPETEL history: : 7 Term: 3 Living children: 3 Current : Admission EGA (weeks) 39 Admission EGA (days) 1 Allergies Coded Allergies: pseudoephedrine (From SUDAFED) (UNKNOWN 09/17/20) Objective General VS: Last Documented: Result Date Time Pulse Ox 96 09/25 716 B/P 118/77 09/25 716 Temp 36.6 09/25 716 Pulse 81 09/25 07 Resp 17 09/25 07 B/P Mean 87.0 09/23 1120 PATIENT WEIGHT: Weight (lb): 162 Weight (oz): Weight (kg): 73.482 Physical Exam Pelvic exam: Pelvis clinically adequate: yes, inlet appears appropriate, pubic bone config appropr, no midpelvic contraction Cervical/ exam: Dilatation (cm): 0 - closed Effacement (%): 0 station: - 3 presentation: cephalic Membranes: Membranes: Intact Baby A: Baby A baseline: 140 bpm Baby A variability: moderate 6-25 bpm Baby A accelerations: 15 X 15 Baby A decelerations: none Baby A FHR category: category 1 Diagnosis, Assessment Plan Diagnosis, Assessment Plan Assessment/Impression: previous C/S, for repeat Plan: scheduled Reason-sched C section: elective repeat Consultation(s): Consultation performed: anesthesia Plan discussed with: patient at 0739 RPT #:[id number] END OF REPORT [facility]
[2024-07-19] MEDS ORDERED: ONDANSETRON 4 MG/2 ML VIAL ONE (00:37)
[2024-07-19] MEDS ORDERED: KETOROLAC 30 MG/ML INJ ONE (00:37)
[2024-07-19] MEDS ORDERED: NA CHLORIDE 0.9% 1,000 ML ONE ×3 (00:38→05:33)
[2024-07-19] MEDS ORDERED: MORPHINE 4 MG/ML SYR ONE ×2 (00:38→02:07)
[2024-07-19 00:57] LABS: Absolute Lymphocytes (CBC) 0.8 K/uL (0.7-4.9); Absolute Monocytes 0.1 K/uL (0.1-1.3); Absolute Neutrophil 12.8 K/uL (1.8-8.0); Basophils % 0.1 % (0-1.3); Eosinophils % 0.2 % (0-4.4); Hematocrit 20.5 % (36.0-45.0); Lymphocytes % 5.5 % (15.3-44.8); MCH 14.9 pg (27.0-35.0); MCHC 26.5 g/dL (32.0-36.0); MCV 56.4 fL (80-100); MPV 8.5 fL (7.6-11.3); Monocytes % 0.6 % (3.3-12.3); Neutrophils % 93.6 % (41.7-73.7); Platelets 422 thou/uL (152-406); RBC Red Blood Cell Count 3.63 M/uL (3.86-4.86); Red Cell Distribution Width 21.7 % (12.1-15.2)
[2024-07-19 01:01] LABS: Hemoglobin 5.4 g/dL (12.0-15.0)
[2024-07-19 01:04] LABS: Calcium Oxalate Crystals- Ur Many /HPF (None Seen); Specific Gravity 1.028 (1.005-1.030); Sqamous Epithelial <5 /HPF (None Seen); Urine Bacteria None Seen /HPF (<20); Urine Culture Reflex Order REFLEXED; Urine Mucus 1+ /HPF (None Seen); Urine RBC >50 /HPF (None Seen); Urine WBC >50 /HPF (<5); Urine WBC Clump Occasional /HPF (None Seen)
[2024-07-19 01:05] LABS: Specific Gravity 1.028 (1.005-1.030); Urine Bilirubin NEGATIVE (Negative); Urine Blood 3+ (Negative); Urine Clarity Extremely Turbid (Clear); Urine Color Light-Orange (Yellow); Urine Glucose NEGATIVE (Negative); Urine Ketones NEGATIVE (Negative); Urine Microscopic Reflex YN NO UMIC; Urine Nitrite NEGATIVE (Negative); Urine Protein 1+ (Negative); Urine Urobilinogen Normal (Normal)
[2024-07-19 01:06] LABS: ALT/SGPT 17 U/L (13-56); Alkaline Phosphatase 73 U/L (45-117); Anion Gap 10.1 mEq/L (5.0-15.0); BUN Blood Urea Nitrogen 18 mg/dL (7-18); Bicarbonate 24 mEq/L (21-32); Bilirubin Total 0.2 mg/dL (0.2-1.0); Globulin 4.2 g/dL (2.3-3.5); Glomerular Filtration Rate 90 ml/min (=/>90); Glucose Level 137 mg/dL (74-106); Lipase 73 U/L (13-75); Potassium 3.1 mEq/L (3.5-5.1); Protein, Total 8.2 g/dL (6.4-8.2); Sodium Level 137 mEq/L (136-145)
[2024-07-19 01:12] LABS: AST/SGOT < 10 U/L (15-37)
[2024-07-19 01:45] LABS: Band Neutrophils 6 % (0-1); Differential Total Cells Count 100; Lymphocytes 5 % (15-42); Monocytes 0 % (0-10); Segmented Neutrophils 89 % (40-80)
[2024-07-19 01:46] LABS: Anisocytosis 1+; Blood Morphology Comment NOTED (NOT SEEN); Microcytosis 3+; Platelet Estimate ADEQ; Target Cells 1+
[2024-07-19 01:47] LABS: Hypochromasia 3+
--- NOTE | 2024-07-19 02:42 | RAD REPORT ---
EXAM DESCRIPTION: Abdomen Pelvis W Contrast RadLex: CT ABDOMEN PELVIS WITH IV CONTRAST CLINICAL HISTORY: 34 years Female; ABD PAIN; IV ONLY Bed Name: 13 TECHNIQUE: CT of the abdomen and pelvis [with] intravenous contrast. All CT scans at this facility use dose modulation, iterative reconstruction, and/or weight based dosi ng when appropriate to reduce radiation dose to as low as reasonably achievable. COMPARISON: None. FINDINGS: Lower thorax: Lung bases are clear Abdomen: Stomach: Small hiatal hernia. Liver: Subcentimeter hypodensity in the right hepatic lobe, too small to characterize. Enlarged. No i ntrahepatic ductal distention. Gallbladder: Moderately distended. Pancreas: Within normal limits Spleen: Within normal limits Right kidney: Multiple renal cysts. Staghorn calculi within the renal pelvis measuring up to 1.7 cm. No hydronephrosis. 5 mm renal stone. Moderate hydronephrosis. Proximal to mid ureteral stone measuring 6 mm. Stranding and edema surrounding the left kidney. Left kidney: Multiple renal cysts. Adrenal glands: Within normal limits Vascular structures: Within normal limits Nodes: No lymphadenopathy by size criteria Pelvis: Small bowel: No significant distention. Appendix: Not visualized. Colon: No distention or acute pericolonic edema. Peritoneum: No free intraperitoneal fluid or air. Bones: No acute bone findings. Bladder: Mild diffuse wall thickening. Reproductive organs: No acute findings. IMPRESSION: 1. Moderate left-sided hydronephrosis with proximal to mid left ureteral stone measuring 6 mm. Stra nding and edema surrounding the left kidney. Correlate with urinalysis for superimposed infectious process. 2. Right-sided staghorn calculi within the renal pelvis measuring up to 1.7 cm. No significant righ t-sided hydronephrosis. 3. Mild diffuse bladder wall thickening, can be seen in setting of cystitis. Correlate with urinaly sis. Electronically signed by: Nahum Onofre MD 07/19/2024 02:22 AM CDT RP Z9 Due to temporary technical issues with the [employer] reporting system, reports are being olya d by the in-house radiologist without review as a courtesy to ensure prompt reporting the interpreting radiologist is fully responsible for the content of the report. Transcribed Date/Time: 07/19/2024 2:42 AM
[2024-07-19] MEDS ORDERED: CEFTRIAXONE 2000 MG/VIAL ONE (03:31)
[2024-07-19] MEDS ORDERED: HYDROMORPHONE HCL 1 MG/ML INJ ONE (03:31)
--- NOTE | 2024-07-19 03:34 | EDPHYS ---
Physician Documentation [facility] Name: Charlee Welch Age: 34 yrs Sex: Female : 1990 Arrival Date: 07/18/2024 Time: 23:19 Bed 3 Private MD: ED Physician Catracho Euceda HPI: 07/19 03:42 This 34 yrs old Female presents to ER via Ambulatory with complaints of rt Nausea/Vomiting, Low Back Pain. 03:42 Patient with previous history of kidney stones presents to the ED with an acute onset rt of left flank pain rating to the abdomen starting tonight. She has associated nausea, vomiting. Denies other acute complaints at this time, symptoms are severe in severity, no other aggravating or alleviating factors.. 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 - Infectious Disease History:: Denies. - Family history:: not pertinent. ROS: 07/19 03:42 Constitutional: Negative for fever, chills, and weight loss, Cardiovascular: Negative rt for chest pain, palpitations, and edema, Respiratory: Negative for shortness of breath, cough, wheezing, and pleuritic chest pain, MS/Extremity: Negative for injury and deformity, Skin: Negative for injury, rash, and discoloration, Neuro: Negative for headache, weakness, numbness, tingling, and seizure, Abdomen/GI: Positive for abdominal pain, nausea and vomiting, Back: Positive for flank pain, Negative for injury or acute deformity, Exam: 03:42 Constitutional: This is a well developed, well nourished patient who is awake, alert, rt and in no acute distress. Head/Face: Normocephalic, atraumatic. Chest/axilla: Normal chest wall appearance and motion. Nontender with no deformity. No lesions are appreciated. Cardiovascular: Regular rate and rhythm with a normal S1 and S2. No gallops, murmurs, or rubs. Normal PMI, no JVD. No pulse deficits. Respiratory: Lungs have equal breath sounds bilaterally, clear to auscultation and percussion. No rales, rhonchi or wheezes noted. No increased work of breathing, no retractions or nasal flaring. Skin: Warm, dry with normal turgor. Normal color with no rashes, no lesions, and no evidence of cellulitis. MS/ Extremity: Pulses equal, no cyanosis. Neurovascular intact. Full, normal range of motion. 03:42 Abdomen/GI: Tenderness to the suprapubic, left lower quadrant with mild guarding, no rebound, distention, 06:14 ECG was reviewed by the Attending Physician. rt Vital Signs: 07/18 23:33 BP 120 / 75; Pulse 99; Resp 16; Temp 98; Pulse Ox 100% ; Weight 61.23 kg; Height 5 ft. vc1 1 in. ; Pain 07/20; 23:48 BP 114 / 73; Pulse 94; Resp 18; Temp 98.2; Pulse Ox 100% on R/A; kj2 07/19 00:50 BP 120 / 78; Pulse 106; Resp 20; Pulse Ox 100% on R/A; kj2 01:28 BP 104 / 72; Pulse 109; Resp 20; Temp 99; Pulse Ox 100% on R/A; kj2 03:30 BP 113 / 57; Pulse 148; Resp 18; Pulse Ox 97% on R/A; kj2 05:51 Temp 102.4(O); vc1 06:17 BP 98 / 59; Pulse 136; Resp 18; Temp 99.4; Pulse Ox 100% on R/A; kj2 07:00 BP 100 / 50; Pulse 133; Resp 22; Temp 98.5(O); Pulse Ox 100% on R/A; vc1 07/18 23:33 Body Mass Index 25.51 (61.23 kg, 154.94 cm) vc1 07/18 23:33 Pain Scale: Adult vc1 MDM: 07/18 23:44 Patient medically screened. rt 07/19 04:50 Differential diagnosis: Kidney stone, pyelonephritis, bowel obstruction, cystitis. Data rt reviewed: vital signs, nurses notes, lab test result(s), EKG, radiologic studies. Consideration of Admission/Observation Escalation of care including admission/observation considered. Patient requires transfer for urologic care. I considered the following discharge prescriptions or medication management in the emergency department Medications were administered in the Emergency Department. See MAR. Independent interpretation of the following test(s) in the Emergency Department CT Scan: My interpretation is Ureteral stone seen on interpretation of CT scan images. Care significantly affected by the following chronic conditions: Kidney stones, chronic anemia. Counseling: I had a detailed discussion with the patient and/or guardian regarding the historical points, exam findings, and any diagnostic results supporting the discharge/admit diagnosis, lab results, radiology results, the need to transfer to another facility. Response to treatment: the patient's symptoms have mildly improved after treatment. ED course: Patient did not initially meet SIRS criteria upon presentation. There is no clear identifiable source. Once CT scan was resulted, no concerns for cystitis despite the fact there is no bacteria in the urine. Will treat patient empirically for sepsis, once lactate returned high, further fluids were given to meet 30 cc/kg.. 05:11 Post IV fluid administration reassessment for Sepsis: Client prescribed 30 mL/kg IVF. rt Sepsis focused reassessment complete. Focused assessment performed: July 19, 2024 at 05:11 Heart: Regular rate/rhythm. Tachycardia noted. Lungs: noted to be clear bilaterally. Capillary refill examination performed. Capillary refill noted to be brisk. Cardio: More tachycardic, however, blood pressure is maintaining. 07/18 23:48 Order name: CBC with Diff; Complete Time: 01:51 rt 07/18 23:48 Order name: CMP; Complete Time: 01:37 rt 07/18 23:48 Order name: Lipase; Complete Time: 01:37 rt 07/18 23:48 Order name: Test, Urine; Complete Time: 01:06 rt 07/18 23:48 Order name: Urinalysis w/ reflexes; Complete Time: 01:06 rt 07/19 01:03 Order name: Manual Differential; Complete Time: 01:51 EDMS 07/19 01:08 Order name: Urine Culture EDMS 07/19 02:38 Order name: Blood Culture Adult (2) rt 07/19 02:38 Order name: Lactate w/ 2H reflex if indic.; Complete Time: 04:28 rt 07/19 02:38 Order name: Protime (+inr); Complete Time: 04:28 rt 07/19 02:38 Order name: Ptt, Activated; Complete Time: 04:28 rt 07/19 02:38 Order name: Type And Screen rt 07/19 04:09 Order name: Packed RBC Leukored EDMS 07/19 04:31 Order name: Glucose, Ancillary Testing; Complete Time: 04:33 EDMS 07/19 05:56 Order name: Lactate w/ 2H reflex if indic.; Complete Time: 06:42 rt 07/18 23:48 Order name: CT Abd/Pelvis - IV Contrast Only rt 07/19 04:32 Order name: EKG; Complete Time: 04:33 rt 07/18 23:49 Order name: IV Saline Lock; Complete Time: 00:26 rt 07/18 23:49 Order name: Labs collected and sent; Complete Time: 00:26 rt 07/19 02:38 Order name: Accucheck; Complete Time: 04:30 rt 07/19 02:38 Order name: Cardiac monitoring; Complete Time: 03:23 rt 07/19 02:38 Order name: IV Saline Lock - Large Bore; Complete Time: 03:23 rt 07/19 02:38 Order name: O2 Per Protocol; Complete Time: 03:23 rt 07/19 02:38 Order name: O2 Sat Monitoring; Complete Time: 03:23 rt 07/19 02:38 Order name: Vital Signs; Complete Time: 03:23 rt 07/19 04:32 Order name: EKG - Nurse/Tech; Complete Time: 06:17 rt EC:14 Rate is 135 beats/min. Rhythm is regular, Sinus tachycardia with No ectopy. QRS [place] is rt Normal. MS interval is normal. QRS interval is normal. QT interval is normal. No Q waves. Interpreted by me. Administered Medications: 00:47 Drug: TORadol - Ketorolac IVP 15 mg IVP once Route: IVP; Site: right antecubital; kj2 01:32 Follow up: Response: No adverse reaction; Pain is decreased kj2 00:49 Drug: Ondansetron IVP 4 mg IVP once; over 2 minutes Route: IVP; Site: right antecubital;kj2 01:31 Follow up: Response: No adverse reaction; Nausea is decreased kj2 00:50 Drug: morphine IVP or IV 4 mg IVP once over 4 mins Route: IVP; Infused Over: 4 mins; kj2 Site: right antecubital; 01:32 Follow up: Response: No adverse reaction; Pain is decreased kj2 00:51 Drug: NS 0.9% IV 1000 ml IV at 1 bolus Per protocol; 1000 mL bolus Route: IV; Rate: 1 kj2 bolus; Site: right antecubital; 01:50 Follow up: IV Status: Completed infusion; IV Intake: 1000ml kj2 02:10 Drug: morphine IVP or IV 4 mg IVP once over 4 mins Route: IVP; Infused Over: 4 mins; kj2 Site: right antecubital; 04:44 Follow up: Response: No adverse reaction; Pain is decreased kj2 03:40 Drug: NS 0.9% IV 1000 ml IV at 1 bolus Per protocol; 1000 mL bolus Route: IV; Rate: 1 kj2 bolus; Site: right antecubital; 07:05 Follow up: Response: No adverse reaction; IV Status: Completed infusion; IV Intake: vc1 1000ml 03:40 Drug: Rocephin IV 2 grams IV at calculated rate once; Given slow IV push per pharmarcy kj2 instructions Route: IV; Rate: calculated rate; Site: right antecubital; 03:45 Follow up: IV Status: Completed infusion; IV Intake: 10ml kj2 03:40 Drug: HYDROmorphone IVP 1 mg IVP once Route: IVP; Site: right antecubital; kj2 04:30 Follow up: Response: No adverse reaction; Pain is decreased kj2 05:51 Drug: NS 0.9% IV 1000 ml IV at 1 bolus Per protocol; 1000 mL bolus Route: IV; Rate: 1 vc1 bolus; Site: left forearm; 07:04 Follow up: Response: No adverse reaction; IV Status: Completed infusion; IV Intake: vc1 1000ml 06:00 Drug: Acetaminophen PO 1000 mg PO once Route: PO; lg3 07:04 Follow up: Response: No adverse reaction; Marked relief of symptoms; Pain is unchanged, 1 physician notified 06:17 Drug: HYDROmorphone IVP 0.5 mg IVP once Route: IVP; Site: left antecubital; kj2 07:04 Follow up: Response: No adverse reaction; No change in condition; Pain is unchanged, 1 physician notified 07:24 Drug: fentaNYL (PF) IVP 25 mcg IVP once Route: IVP; Site: left antecubital; vc1 07:28 Follow up: Response: No adverse reaction; Medication Administered at Departure vc1 Disposition Summary: 07/19/24 03:34 Transfer Ordered Notes: Transfer Location: [facility] rt Reason: Higher level of care rt Condition: Fair rt Problem: new rt Symptoms: have improved rt Accepting Physician: (07/19/24 07:29) vc1 Diagnosis - Left ureteral stone rt - Staghorn calculus of right kidney rt - Leukocytosis rt - Anemia rt Forms: - Medication Reconciliation Form rt - SBAR form rt Critical care time excluding procedures: 06:03 Critical care time: Bedside Care: 45 minutes, Consultation: 10 minutes. Total time: 55 rt minutes Signatures: Dispatcher [employer] EDThomas Corona MD MD rn Able, Lacie RN RN lg3 Stacie Galarza RN RN vc1 Catracho Euceda MD MD rt Nuris Mcclellan RN RN kj2 Corrections: (The following items were deleted from the chart) 07:29 03:34 rt vc1
--- NOTE | 2024-07-19 03:34 | ER ---
Nurse's Notes [facility] Name: Charlee Welch Age: 34 yrs Sex: Female : 1990 Arrival Date: 07/18/2024 Time: 23:19 Bed 3 Private MD: Diagnosis: Left ureteral stone;Staghorn calculus of right kidney;Leukocytosis;Anemia Presentation: 07/18 23:33 Chief complaint: Patient states: C/o lower back pain x 2 days. Pain is getting worse. vc1 History of kidney stones. Also having nausea and vomiting. Coronavirus screen: Vaccine status: Patient reports being unvaccinated. Ebola Screen: Patient negative for fever greater than or equal to 101.5 degrees Fahrenheit, and additional compatible Ebola Virus Disease symptoms. Initial Sepsis Screen: Does the patient meet any 2 criteria? No. Patient's initial sepsis screen is negative. Does the patient have a suspected source of infection? No. Patient's initial sepsis screen is negative. Risk Assessment: Do you want to hurt yourself or someone else? Patient reports no desire to harm self or others. Onset of symptoms was July 16, 2024. 23:33 Method Of Arrival: Ambulatory vc1 23:33 Acuity: JOANN 3 vc1 Triage Assessment: 23:52 GI: Reports nausea, vomiting, since YESTERDAY MORNING. 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 - Infectious Disease History:: Denies. - Family history:: not pertinent. Screenin:50 [facility] ED Fall Risk Assessment (Adult) History of falling in the last 3 months, kj2 including since admission No falls in past 3 months (0 pts) Confusion or Disorientation No (0 pts) Intoxicated or Sedated No (0 pts) Impaired Gait No (0 pts) Mobility Assist Device Used No (0 pt) Altered Elimination No (0 pt) Score/Fall Risk Level 0 - 2 = Low Risk Maintained a safe environment, Hourly rounding (assess needs \T\ fall precautionary measures) done. Abuse screen: Denies threats or abuse. Denies injuries from another. Nutritional screening: No deficits noted. Tuberculosis screening: No symptoms or risk factors identified. Assessment: 23:45 General: Appears in no apparent distress. uncomfortable, Behavior is calm, cooperative. kj2 Pain: Complains of pain in LOWER BACK Pain currently is 9 out of 10 on a pain scale. Neuro: Level of Consciousness is awake, alert, obeys commands, Oriented to person, place, time, situation. Cardiovascular: Patient's skin is warm and dry. Respiratory: Airway is patent Respiratory effort is even, unlabored. GI: Abdomen is TENDER TO TOUCH. : No signs and/or symptoms were reported regarding the genitourinary system. 07/19 00:23 Reassessment: No changes from previously documented assessment. Patient and/or family kj2 updated on plan of care and expected duration. Pain level reassessed. 00:50 Reassessment: Patient and/or family updated on plan of care and expected duration. Pain kj2 level reassessed. Patient is alert, oriented x 3, equal unlabored respirations, skin warm/dry/pink. 01:31 Reassessment: Patient and/or family updated on plan of care and expected duration. Pain kj2 level reassessed. Patient is alert, oriented x 3, equal unlabored respirations, skin warm/dry/pink. Patient states symptoms have improved. 03:41 Reassessment: Patient appears in no apparent distress at this time. Patient and/or kj2 family updated on plan of care and expected duration. Pain level reassessed. 04:50 Reassessment: Patient appears in no apparent distress at this time. Patient and/or kj2 family updated on plan of care and expected duration. Pain level reassessed. 07:03 Reassessment: Patient appears in no apparent distress at this time. No changes from vc1 previously documented assessment. Patient and/or family updated on plan of care and expected duration. Pain level reassessed. Patient is alert, oriented x 3, equal unlabored respirations, skin warm/dry/pink. Vital Signs: 07/18 23:33 BP 120 / 75; Pulse 99; Resp 16; Temp 98; Pulse Ox 100% ; Weight 61.23 kg; Height 5 ft. vc1 1 in. ; Pain 07/20; 23:48 BP 114 / 73; Pulse 94; Resp 18; Temp 98.2; Pulse Ox 100% on R/A; kj2 07/19 00:50 BP 120 / 78; Pulse 106; Resp 20; Pulse Ox 100% on R/A; kj2 01:28 BP 104 / 72; Pulse 109; Resp 20; Temp 99; Pulse Ox 100% on R/A; kj2 03:30 BP 113 / 57; Pulse 148; Resp 18; Pulse Ox 97% on R/A; kj2 05:51 Temp 102.4(O); vc1 06:17 BP 98 / 59; Pulse 136; Resp 18; Temp 99.4; Pulse Ox 100% on R/A; kj2 07:00 BP 100 / 50; Pulse 133; Resp 22; Temp 98.5(O); Pulse Ox 100% on R/A; vc1 07/18 23:33 Body Mass Index 25.51 (61.23 kg, 154.94 cm) vc1 07/18 23:33 Pain Scale: Adult vc1 ED Course: 07/18 23:22 Patient arrived in ED. gm2 23:28 Catracho Euceda MD is Attending Physician. rt 23:36 Triage completed. vc1 23:45 Nuris Mcclellan, NELSON is Primary Nurse. kj2 23:51 Patient has correct armband on for positive identification. Bed in low position. Call kj2 light in reach. Adult w/ patient. Provided Education on: CALL LIGHT, FALL PRECAUTIONS. 23:52 No provider procedures requiring assistance completed. kj2 07/19 00:23 Inserted saline lock: 20 gauge in right antecubital area, using aseptic technique. kj2 Blood collected. Flushed with 10 mL NS. 00:26 Test, Urine Sent. kj2 00:26 Urinalysis w/ reflexes Sent. kj2 00:51 Arm band placed on Patient placed in an exam room, on a stretcher. kj2 01:58 CT Abd/Pelvis - IV Contrast Only In Process Unspecified. EDMS 03:23 Lactate w/ 2H reflex if indic. Sent. kj2 03:23 Blood Culture Adult (2) Sent. kj2 05:44 Inserted saline lock: 22 gauge in left antecubital area, using aseptic technique. oe Flushed with 10 mL NS. 07:29 Patient transferred, IV remains in place. vc1 Administered Medications: 00:47 Drug: TORadol - Ketorolac IVP 15 mg IVP once Route: IVP; Site: right antecubital; kj2 01:32 Follow up: Response: No adverse reaction; Pain is decreased kj2 00:49 Drug: Ondansetron IVP 4 mg IVP once; over 2 minutes Route: IVP; Site: right antecubital;kj2 01:31 Follow up: Response: No adverse reaction; Nausea is decreased kj2 00:50 Drug: morphine IVP or IV 4 mg IVP once over 4 mins Route: IVP; Infused Over: 4 mins; kj2 Site: right antecubital; 01:32 Follow up: Response: No adverse reaction; Pain is decreased kj2 00:51 Drug: NS 0.9% IV 1000 ml IV at 1 bolus Per protocol; 1000 mL bolus Route: IV; Rate: 1 kj2 bolus; Site: right antecubital; 01:50 Follow up: IV Status: Completed infusion; IV Intake: 1000ml kj2 02:10 Drug: morphine IVP or IV 4 mg IVP once over 4 mins Route: IVP; Infused Over: 4 mins; kj2 Site: right antecubital; 04:44 Follow up: Response: No adverse reaction; Pain is decreased kj2 03:40 Drug: NS 0.9% IV 1000 ml IV at 1 bolus Per protocol; 1000 mL bolus Route: IV; Rate: 1 kj2 bolus; Site: right antecubital; 07:05 Follow up: Response: No adverse reaction; IV Status: Completed infusion; IV Intake: vc1 1000ml 03:40 Drug: Rocephin IV 2 grams IV at calculated rate once; Given slow IV push per pharmarcy kj2 instructions Route: IV; Rate: calculated rate; Site: right antecubital; 03:45 Follow up: IV Status: Completed infusion; IV Intake: 10ml kj2 03:40 Drug: HYDROmorphone IVP 1 mg IVP once Route: IVP; Site: right antecubital; kj2 04:30 Follow up: Response: No adverse reaction; Pain is decreased kj2 05:51 Drug: NS 0.9% IV 1000 ml IV at 1 bolus Per protocol; 1000 mL bolus Route: IV; Rate: 1 vc1 bolus; Site: left forearm; 07:04 Follow up: Response: No adverse reaction; IV Status: Completed infusion; IV Intake: vc1 1000ml 06:00 Drug: Acetaminophen PO 1000 mg PO once Route: PO; lg3 07:04 Follow up: Response: No adverse reaction; Marked relief of symptoms; Pain is unchanged, vc1 physician notified 06:17 Drug: HYDROmorphone IVP 0.5 mg IVP once Route: IVP; Site: left antecubital; kj2 07:04 Follow up: Response: No adverse reaction; No change in condition; Pain is unchanged, vc1 physician notified 07:24 Drug: fentaNYL (PF) IVP 25 mcg IVP once Route: IVP; Site: left antecubital; vc1 07:28 Follow up: Response: No adverse reaction; Medication Administered at Departure vc1 Medication: 07/18 23:51 VIS not applicable for this client. kj2 Intake: 07/19 01:50 IV: 1000ml; Total: 1000ml. kj2 03:45 IV: 10ml; Total: 1010ml. kj2 07:04 IV: 1000ml; Total: 2010ml. vc1 07:05 IV: 1000ml; Total: 3010ml. vc1 Outcome: 03:34 ER care complete, transfer ordered by . rt 07:28 Transferred by ground EMS to [facility], Transfer form completed. vc1 07:28 Condition: stable 07:28 Instructed on the need for transfer, Demonstrated understanding of instructions, 07:29 Patient left the ED. vc1 Addendum: 07/21/2024 07:15 Addendum: Other patient was transferred to [facility] ICU bed 8/ faxed positive e b culture report to Cassy Enciso at [phone]. Signatures: Dispatcher [employer] EDNY Atul Hollingsworth Elizabeth eb Able, Lacie RN RN lg3 Stacie Galarza RN RN vc1 Catracho Euceda MD MD rt Donna Khan gm2 Nuris Mcclellan, RN RN kj2
[2024-07-19 04:02] LABS: PT Prothrombin Time 13.6 SECONDS (9.4-12.5); PTT, Activated Partial Thromb 24.5 SECONDS (24.3-36.9); Protime INR 1.22
[2024-07-19] MEDS ORDERED: NA CHLORIDE 0.9% 500 ML ONE (05:22)
[2024-07-19] MEDS ORDERED: ACETAMINOPHEN 500 MG TAB ONE (05:53)
[2024-07-19] MEDS ORDERED: HYDROMORPHONE HCL 0.5 MG/0.5 ML INJ ONE ×2 (06:11→06:19)
[2024-07-19] MEDS ORDERED: FENTANYL CITR 100 MCG/2 ML ONE (07:07)
[2024-07-19 08:33] VITALS: O2SAT 100
[2024-07-19 08:35] VITALS: BP 100/50; TEMP 98.5
--- NOTE | 2024-07-20 16:56 | EKG ---
Test Date: 2024-07-19 Test Time: 06:10:17 [employer]: ROCIO MEASUREMENT RESULTS: Intervals: Rate: 138 DE: QRSD: 68 QT: 364 QTc: 551 [place]: P: DE: QRS: 74 T: 57 INTERPRETIVE STATEMENTS: Supraventricular tachycardia ST & T wave abnormality, consider inferior ischemia Abnormal ECG No previous ECG available for comparison Electronically Signed On 07-20-24 16:51:14 CDT by Shan Paiz
--- NOTE | 2024-07-20 16:56 | EKG ---
Test Date: 2024-07-19 Test Time: 06:11:43 Software [employer]: ROCIO MEASUREMENT RESULTS: Intervals: Rate: 135 ME: 134 QRSD: 70 QT: 278 QTc: 417 [place]: P: 67 ME: 134 QRS: 74 T: 37 INTERPRETIVE STATEMENTS: Sinus tachycardia Nonspecific ST abnormality Abnormal ECG Compared to ECG 07/19/2024 06:10:17 Supraventricular tachycardia no longer present Possible ischemia no longer present ST (T wave) deviation still present Electronically Signed On 07-20-24 16:51:13 CDT by Shan Paiz
== END 2024-07-19 07:29 | disposition short-term general hospital (02) ==
LOC: ER 23:19
PROC: 30233N1 Transfusion of Nonautologous Red Blood Cells into Peripheral Vein, Percutaneous Approach (ICD-10-PCS; principal; 2024-07-19)
DX: N20.2 Calculus of kidney with calculus of ureter (principal); D72.829 Elevated white blood cell count, unspecified; D64.9 Anemia, unspecified; Z87.442 Personal history of urinary calculi
CPT/HCPCS: 36415; 74177; 80053; 81003; 81025; 82947; 83605; 83690; 85025; 85610; 85730; 86850; 86900; 86901; 86920; 87040; 87077; 87086; 87088; 87186; 87205; 93005; J0696; J1170; J2405; J3010; J7030; J7040; P9016; Q9967

== ENCOUNTER 2024-09-14 19:38 | Emergency (ER) | payer SELFPAY ==
[2024-09-14] MEDS ORDERED: ONDANSETRON 4 MG/2 ML VIAL ONE (20:32)
[2024-09-14] MEDS ORDERED: ACETAMINOPHEN 500 MG TAB ONE (20:32)
[2024-09-14] MEDS ORDERED: VANCOMYCIN 1 GM/VIAL ONE (20:32)
[2024-09-14] MEDS ORDERED: IBUPROFEN 400 MG TAB ONE (20:33)
[2024-09-14] MEDS ORDERED: MORPHINE 4 MG/ML SYR ONE ×2 (20:33→22:38)
[2024-09-14] MEDS ORDERED: IBUPROFEN 200 MG TAB PO ONE (20:33)
[2024-09-14] MEDS ORDERED: CEFEPIME 2 GM VIAL ONE (20:33)
[2024-09-14] MEDS ORDERED: NA CHLORIDE 0.9% 2,000 ML ONE (20:34)
[2024-09-14] MEDS ORDERED: MORPHINE 2 MG/ML SYR ONE (20:34)
[2024-09-14] MEDS ORDERED: NA CHLORIDE 0.9% 100 ML ONE (20:34)
[2024-09-14] MEDS ORDERED: NA CHLORIDE 0.9% 250 ML ONE (20:34)
[2024-09-14 20:36] LABS: Absolute Lymphocytes (CBC) 0.6 K/uL (0.7-4.9); Absolute Monocytes 0.6 K/uL (0.1-1.3); Absolute Neutrophil 7.9 K/uL (1.8-8.0); Basophils % 0.1 % (0-1.3); Hematocrit 38.2 % (36.0-45.0); Hemoglobin 12.4 g/dL (12.0-15.0); Lymphocytes % 6.2 % (15.3-44.8); MCH 27.5 pg (27.0-35.0); MCHC 32.4 g/dL (32.0-36.0); MCV 84.7 fL (80-100); MPV 8.9 fL (7.6-11.3); Monocytes % 6.1 % (3.3-12.3); Neutrophils % 87.6 % (41.7-73.7); Platelets 235 thou/uL (152-406); RBC Red Blood Cell Count 4.51 M/uL (3.86-4.86); Red Cell Distribution Width 19.9 % (12.1-15.2)
[2024-09-14 20:38] LABS: PT Prothrombin Time 13.5 SECONDS (9.4-12.5); PTT, Activated Partial Thromb 35.8 SECONDS (24.3-36.9); Protime INR 1.21
[2024-09-14 20:42] LABS: Specific Gravity 1.022 (1.005-1.030)
[2024-09-14 20:43] LABS: Specific Gravity 1.022 (1.005-1.030); Sqamous Epithelial <5 /HPF (None Seen); Urine Bacteria None Seen /HPF (<20); Urine Bilirubin NEGATIVE (Negative); Urine Blood 3+ (Negative); Urine Clarity Extremely Turbid (Clear); Urine Color Yellow (Yellow); Urine Crystals Unidentified Few /HPF (None Seen); Urine Culture Reflex Order REFLEXED; Urine Glucose NEGATIVE (Negative); Urine Ketones 3+ (Negative); Urine Microscopic Reflex YN ORDER UMIC; Urine Mucus Slight /HPF (None Seen); Urine Nitrite NEGATIVE (Negative); Urine Protein TRACE (Negative); Urine RBC >50 /HPF (None Seen); Urine Urobilinogen Normal (Normal); Urine WBC 20-50 /HPF (<5); Urine WBC Clump Rare /HPF (None Seen); Urine Yeast (Budding) Trace /HPF (None Seen)
[2024-09-14 20:44] LABS: Specific Gravity 1.016 (1.005-1.030); Sqamous Epithelial <5 /HPF (None Seen); Urine Bacteria None Seen /HPF (<20); Urine Bilirubin NEGATIVE (Negative); Urine Blood 3+ (OVER) (Negative); Urine Clarity Extremely Turbid (Clear); Urine Color Light-Orange (Yellow); Urine Crystals Unidentified Moderate /HPF (None Seen); Urine Culture Reflex Order REFLEXED; Urine Glucose NEGATIVE (Negative); Urine Ketones 2+ (Negative); Urine Micro Reflex YN NO BILL MICROSCOPIC; Urine Nitrite 2+ (Negative); Urine Protein 2+ (Negative); Urine RBC >50 /HPF (None Seen); Urine Urobilinogen Normal (Normal); Urine WBC >50 /HPF (<5); Urine WBC Clump Occasional /HPF (None Seen); Urine Yeast (Budding) Few /HPF (None Seen)
[2024-09-14 20:52] LABS: Albumin 3.8 g/dL (3.4-5.0); Albumin/Globulin Ratio 0.8 (1.1-1.8); Anion Gap 10.7 mEq/L (5.0-15.0); Bilirubin Total 0.4 mg/dL (0.2-1.0); Globulin 4.5 g/dL (2.3-3.5); Potassium 3.7 mEq/L (3.5-5.1); Protein, Total 8.3 g/dL (6.4-8.2)
[2024-09-14 21:00] LABS: Blood Morphology Comment NOT SEEN (NOT SEEN); Platelet Estimate ADEQ; White Blood Cell Scan OK (OK)
--- NOTE | 2024-09-14 22:29 | RAD REPORT ---
EXAMINATION: CT Abdomen Pelvis W Contrast CLINICAL INDICATION: Female, 34 years old. left nephrostomy with infection TECHNIQUE: CT abdomen and pelvis was performed, after the administration of IV contrast, as per [facility] protocol. Axial, sagittal and coronal reconstructions were obtained. One or more of the following dose reduction techniques were used: Automated exposure control, adjustment of the mA and k V according to patient size, and iterative reconstruction. Unless otherwise specified, incidental findings do not require dedicated imaging follow-up. COMPARISON: 07/19/2024 FINDINGS: LOWER CHEST: The visualized lung bases are clear. LIVER: Normal in size and contour. No focal lesion. BILIARY SYSTEM: No suspicious abnormalities. SPLEEN: Normal size. No focal lesion. PANCREAS: No mass, ductal dilation, or agatha-pancreatic fluid. ADRENALS: Normal; no mass. KIDNEYS: Subtle patchy hypoenhancement along the left renal upper to midpole cortex. The degree of pe rinephric fluid/edema seen on the prior CT has since partially improved. The degree of left hydronephrosis has improved. Unchanged crescentic right renal pelvis calculus measuring 12 mm. Left p ercutaneous nephrostomy tube has been placed. Lower pole 5 mm calculus appears stable. 7 mm calculus along the proximal left ureter appears stable. URINARY BLADDER: Unremarkable. GASTROINTESTINAL TRACT: No evidence of free air, significant intra-abdominal free fluid, bowel obstru ction or abscess. APPENDIX: Normal appendix. LYMPH NODES: No lymphadenopathy. MUSCULOSKELETAL: No acute or suspicious osseous abnormality. 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 IMPRESSION: Subtle patchy cortical hypoenhancement within the left kidney, findings which may indicate ongoing py elonephritis. Improvement of the degree of left hydronephrosis following left percutaneous nephrostomy tube placeme nt. Stable burden of bilateral renal calculi.
[2024-09-14] MEDS ORDERED: KETOROLAC 30 MG/ML INJ ONE (22:42)
--- NOTE | 2024-09-14 23:12 | EDPHYS ---
Physician Documentation [facility] Name: Charlee Welch Age: 34 yrs Sex: Female : 1990 Arrival Date: 09/14/2024 Time: 19:38 Bed 5 Private MD: ED Physician Moshe Storm HPI: 09/14 20:04 This 34 yrs old Female presents to ER via Ambulatory with complaints of sp4 Abdominal Pain, Nausea/Vomiting. 23:02 34-year-old female presents with moderate to severe left flank pain associated with sp4 fever and rapid heart rate. Patient states 2 months ago she was at the [facility] where she was given left nephrostomy tube for 7 mm left mid ureteral stone with obstruction and pyelonephritis. Patient was discharged home with left percutaneous nephrostomy. In the last 24 hours patient developed fever worsening flank pain vomiting. Which prompted presentation here. Patient has history of multiple prior kidney stones.. 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 - Infectious Disease History:: Denies. - Social history:: Smoking status: unknown. - Family history:: not pertinent. ROS: 23:02 Constitutional: positive for fever chills tachycardia, positive for left flank pain, sp4 positive for left percutaneous nephrostomy 23:02 All other systems are negative, Exam: 23:02 Constitutional: This is a well developed, well nourished patient who is awake, alert, sp4 patient has moderate distress secondary to left flank pain also tachycardia also positive for left percutaneous nephrostomy Head/Face: Normocephalic, atraumatic. Eyes: Pupils equal round and reactive to light, extra-ocular motions intact. Lids and lashes normal. Conjunctiva and sclera are not injected. Cornea within normal limits. Periorbital areas with no swelling, redness, or edema. ENT: Nares patent. No nasal discharge, no septal abnormalities noted. Tympanic membranes are normal and external auditory canals are clear. Oropharynx with no redness, swelling, or masses, exudates, or evidence of obstruction, uvula midline. Mucous membranes moist. Neck: Trachea midline, no thyromegaly or masses palpated, and no cervical lymphadenopathy. Supple, full range of motion without nuchal rigidity, or vertebral point tenderness. Chest/axilla: Normal chest wall appearance and motion. Nontender with no deformity. No lesions are appreciated. Cardiovascular: Positive for moderate tachycardia. No gallops, murmurs, or rubs. Normal PMI, no JVD. No pulse deficits. Respiratory: Lungs have equal breath sounds bilaterally, clear to auscultation and percussion. No rales, rhonchi or wheezes noted. No increased work of breathing, no retractions or nasal flaring. Abdomen/GI: Soft, with normal bowel sounds. No distension or tympany. No guarding or rebound. No evidence of tenderness throughout. Back: No spinal tenderness. No costovertebral tenderness. There is a left percutaneous nephrostomy with a dressing that is clean dry and intact. No sign of percutaneous nephrostomy infection Skin: Warm, dry with normal turgor. Normal color with no rashes, no lesions, and no evidence of cellulitis. MS/ Extremity: Pulses equal, no cyanosis. Neurovascular intact. Full, normal range of motion. Neuro: Awake and alert, GCS 15, oriented to person, place, time, and situation. Cranial nerves II-XII grossly intact. Motor strength 5/5 in all extremities. Sensory grossly intact. Psych: Awake, alert, with orientation to person, place and time. Behavior, mood, and affect are within normal limits 23:02 ECG was reviewed by the Attending Physician. EKG at 2020 sinus tachycardia rate 126. Otherwise normal EKG. Vital Signs: 20:00 BP 125 / 86; Pulse 139; Resp 22; Temp 102.6(O); Pulse Ox 98% on R/A; Weight 56.7 kg; cm10 Height 5 ft. 1 in. ; Pain 8/10; 21:00 BP 113 / 73; Pulse 100; Resp 18; Pulse Ox 98% ; cp4 22:09 Temp 99.0; cp4 22:10 Temp 99.0; cp4 22:45 BP 96 / 53; Pulse 81; Resp 18; Pulse Ox 99% ; cp4 12/06 00:27 BP 96 / 52; Pulse 75; Resp 18; Pulse Ox 99% ; cp4 01:18 BP 97 / 55; Pulse 78; Resp 18; Pulse Ox 99% ; cp4 09/14 20:00 Body Mass Index 23.62 (56.70 kg, 154.94 cm) cm10 09/14 20:00 Pain Scale: Adult cm10 Barbara Coma Score: 09/14 23:02 Eye Response: spontaneous(4). Motor Response: obeys commands(6). Verbal Response: sp4 oriented(5). Total: 15. MDM: 20:04 Medical Screening Exam initiated sp4 23:08 Differential diagnosis: Nonspecific abd pain, gastritis, pancreatitis, diverticulitis, sp4 viral gastroenteritis, gastroenteritis. Data reviewed: vital signs, nurses notes, old medical records, lab test result(s), EKG, radiologic studies, CT scan. ED course: CT report - IMPRESSION: Subtle patchy cortical hypoenhancement within the left kidney, findings which may indicate ongoing pyelonephritis. Improvement of the degree of left hydronephrosis following left percutaneous nephrostomy tube placement. Stable burden of bilateral renal calculi. . ED course: Full CT report - Exam Date: 09/14/24 EXAMINATION: CTAbdomen Pelvis W Contrast CLINICAL INDICATION: Female, 34 years old. left nephrostomy with infection TECHNIQUE: CT abdomen and pelvis was performed, after the administration of IV contrast, as per department protocol. Axial, sagittal and coronal reconstructions were obtained. One or more of the following dose reduction techniques were used: Automated exposure control, adjustment of the mA and kV according to patient size, and iterative reconstruction. Unless otherwise specified, incidental findings do not require dedicated imaging follow-up. COMPARISON: 07/19/2024 FINDINGS: LOWER CHEST: The visualized lung bases are clear. LIVER: Normal in size and contour. No focal lesion. BILIARYSYSTEM: No suspicious abnormalities. SPLEEN: Normal size. No focal lesion. PANCREAS: No mass, ductal dilation, or agatha-pancreatic fluid. ADRENALS: Normal; no mass. KIDNEYS: Subtle patchy hypoenhancement along the left renal upper to midpole cortex. The degree of perinephric fluid/edema seen on the prior CT has since partially improved. The degree of left hydronephrosis has improved. Unchanged crescentic right renal pelvis calculus measuring 12 mm. Left percutaneous nephrostomy tube has been placed. Lower pole 5 mm calculus appears stable. 7 mm calculus along the proximal left ureter appears stable. URINARYBLADDER: Unremarkable. GASTROINTESTINAL TRACT: No evidence of free air, significant intra-abdominal free fluid, bowel obstruction or abscess. . 23:33 ED course: Patient was discussed with urologist at [facility] and and sp4 urology states that since nephrostomy tube is present the Acute Urologic Intervention is indicated. Urologist states that transfer is not appropriate to the [facility]. 09/14 19:59 Order name: Blood Culture Adult (2) 09/14 19:59 Order name: CBC with Diff; Complete Time: 21:27 09/14 19:59 Order name: CMP; Complete Time: 21:27 09/14 19:59 Order name: Lactate w/ 2H reflex if indic.; Complete Time: 21:27 09/14 19:59 Order name: Protime (+inr); Complete Time: 21:27 05 19:59 Order name: Ptt, Activated; Complete Time: 21:27 05 19:59 Order name: Urinalysis w/ reflexes; Complete Time: 21:27 05 19:59 Order name: Test, Urine; Complete Time: 21:27 05 20:14 Order name: Troponin High Sensitivity; Complete Time: 22:38 [facility] 05 20:14 Order name: Urinalysis W/Microscopic; Complete Time: 21:27 [facility] 09/14 20:15 Order name: Test, Serum; Complete Time: 22:38 [facility] 09/14 20:28 Order name: Glucose, Ancillary Testing; Complete Time: 21:27 [facility] 09/14 20:47 Order name: Urine Culture [facility] 09/14 20:51 Order name: Influenza Screen (a \T\ B); Complete Time: 21:27 [facility] 09/14 21:01 Order name: CBC Smear Scan; Complete Time: 21:27 [facility] 05 20:14 Order name: CT Abd/Pelvis - IV Contrast Only; Complete Time: 22:38 [facility] 09/14 19:59 Order name: EKG; Complete Time: 20:00 09/14 19:59 Order name: Accucheck; Complete Time: 20:25 09/14 19:59 Order name: Cardiac monitoring; Complete Time: 20:25 rn 09/14 19:59 Order name: EKG - Nurse/Tech; Complete Time: 20:25 rn 09/14 19:59 Order name: IV Saline Lock - Large Bore; Complete Time: 20:25 rn 09/14 19:59 Order name: Labs collected and sent; Complete Time: 20:25 rn 09/14 19:59 Order name: O2 Per Protocol; Complete Time: 20:25 rn 09/14 19:59 Order name: O2 Sat Monitoring; Complete Time: 20:25 rn 09/14 19:59 Order name: Vital Signs; Complete Time: 20:25 rn EC: Rate is 126 beats/min. Rhythm is regular, Sinus tachycardia. QRS [place] is Normal. NM sp4 interval is normal. QRS interval is normal. QT interval is normal. No Q waves. T waves are Normal. No ST changes noted. Clinical impression: No evidence of ischemia. Interpreted by me. Reviewed by me. Administered Medications: 20:50 Drug: Ibuprofen PO 600 mg PO once Route: PO; cp4 22:09 Follow up: Temp 99.0; Response: No adverse reaction; Temperature is decreased cp4 20:51 CANCELLED (Physician Discretion): influenza virus vaccine0.5 ml IM once; Provide the cp4 Vaccine Information Statement (VIS). 20:51 Drug: NS 0.9% IV (30 ml/kg) 30 ml/kg IV at bolus once; Sepsis Protocol; to be given as cp4 a bolus over 90 minutes Route: IV; Rate: bolus; Site: left antecubital; 22:07 Follow up: IV Status: Infusion continued cp4 20:51 Drug: Cefepime IVPB 2 grams IVPB at 200 ml/hr once over 30 mins; (mix in NS 100 mL) cp4 Route: IVPB; Rate: 200 ml/hr; Infused Over: 30 mins; Site: left antecubital; 21:20 Follow up: Response: No adverse reaction; IV Status: Completed infusion cp4 20:51 Drug: morphine IVP or IV 6 mg IVP once over 4 mins Route: IVP; Infused Over: 4 mins; cp4 Site: left antecubital; 22:07 Follow up: Response: No adverse reaction; Pain is decreased cp4 20:51 Drug: Ondansetron IVP 8 mg IVP once; over 2 minutes Route: IVP; Site: left antecubital; cp4 22:08 Follow up: Response: No adverse reaction cp4 20:51 Drug: Acetaminophen PO 1000 mg PO once Route: PO; cp4 22:10 Follow up: Temp 99.0; Response: No adverse reaction; Temperature is decreased cp4 21:21 Drug: vancoMYCIN IVPB 1 grams IVPB once over 2 hrs Route: IVPB; Infused Over: 2 hrs; cp4 Site: left antecubital; 22:08 Drug: NS 0.9% IV 1000 ml IV at 125 ml once; to be given as a bolus over 60 minutes cp4 Route: IV; Rate: 125 ml; Site: left antecubital; 09/15 01:21 Follow up: IV Status: Infusion continued upon transfer cp4 09/14 22:45 Not Given (Hemodynamic Parameters): morphineor iv 4 mg IVP once over 4 mins cp4 22:45 Drug: Ketorolac IVP 30 mg IVP once Route: IVP; Site: left antecubital; cp4 09/15 00:38 Follow up: Response: No adverse reaction; Pain is decreased cp4 00:38 Not Given (Patient Refused): [id number] mg IVP once; over 1 to 2 minutes cp4 Disposition Summary: 09/14/24 23:11 Transfer Ordered Notes: Transfer Location: [facility] sp4 Reason: Higher level of care sp4 Condition: Fair sp4 Problem: new sp4 Symptoms: have improved sp4 Accepting Physician: Urology and Accepting Medicine MD Sosa (09/15/24 01:20) cp4 Diagnosis - Severe sepsis without septic shock sp4 - Pyelonephritis acute sp4 - Left percutaneous nephrostomy, left mid ureteral obstructing calculus, Left sp4 pyelonephritis in the setting of obstructive left ureteral calculus Forms: - Medication Reconciliation Form sp4 - SBAR form sp4 Critical care time excluding procedures: 09/14 23:11 Critical care time: Bedside Care: 36 minutes, Consultation: 12 minutes, Family sp4 Intervention: 12 minutes. Total time: 60 minutes Signatures: Dispatcher [employer] EDMS Thomas Ramirez MD MD rn Potepalov, Sergey, MD MD sp4 Chantal Phillips RN RN cm10 Cee Young cp4 Corrections: (The following items were deleted from the chart) 20:15 20:15 Abdomen Pelvis W Con+CT.RAD.BRZ ordered. EDMS EDMS 20:51 20:04 Influenza Virus Vaccine IM 0.5 ml IM once; Provide the Vaccine Information cp4 Statement (VIS). ordered. sp4 09/15 01:20 12 23:11 Urology and Accepting Medicine MD Sosa sp4 cp4
--- NOTE | 2024-09-14 23:12 | ER ---
Nurse's Notes [facility] Name: Charlee Welch Age: 34 yrs Sex: Female : 1990 Arrival Date: 09/14/2024 Time: 19:38 Bed 5 Private MD: Diagnosis: Severe sepsis without septic shock;Pyelonephritis acute;Left percutaneous nephrostomy, left mid ureteral obstructing calculus, Left pyelonephritis in the setting of obstructive left ureteral calculus Presentation: 09/14 20:00 Chief complaint: Patient states: FEVER, NAUSEA, VOMITING AND LEFT SIDED FLANK PAIN cm10 ONSET TODAY. PT HAS LEFT SIDED NEPHROSTOMY TUBE PLACED 2 MONTHS AGO FOR KIDNEY STONE. Coronavirus screen: Client denies travel out of the [place] in the last 14 days. Ebola Screen: Patient denies travel to an Ebola-affected area in the 21 days before illness onset. No symptoms or risks identified at this time. Initial Sepsis Screen: Does the patient meet any 2 criteria? RR > 20 per min. Temp <36.0*C (96.8*F)) or > 38.3*C (100.9*F). HR > 90 bpm. Yes Does the patient have a suspected source of infection? No. Patient's initial sepsis screen is negative. Risk Assessment: Do you want to hurt yourself or someone else? Patient reports no desire to harm self or others. Onset of symptoms was September 14, 2024. 20:00 Method Of Arrival: Ambulatory cm10 20:00 Acuity: JOANN 2 cm10 Triage Assessment: 20:02 General: Appears in no apparent distress. uncomfortable, Behavior is crying. Neuro: No cm10 deficits noted. Level of Consciousness is awake, alert, obeys commands, Oriented to person, place, time, situation, Appropriate for age. Respiratory: No deficits noted. Airway is patent Respiratory effort is even, unlabored, Respiratory pattern is regular, symmetrical. 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 - Infectious Disease History:: Denies. - Social history:: Smoking status: unknown. - Family history:: not pertinent. Screenin:55 [facility] ED Fall Risk Assessment (Adult) History of falling in the last 3 months, cp4 including since admission No falls in past 3 months (0 pts) Confusion or Disorientation No (0 pts) Intoxicated or Sedated No (0 pts) Impaired Gait No (0 pts) Mobility Assist Device Used No (0 pt) Altered Elimination No (0 pt) Score/Fall Risk Level 0 - 2 = Low Risk Oriented to surroundings, Maintained a safe environment, Assessed \T\ reinforced patient's understanding of fall precautions, Hourly rounding (assess needs \T\ fall precautionary measures) done. Abuse screen: Denies threats or abuse. Nutritional screening: No deficits noted. Tuberculosis screening: No symptoms or risk factors identified. Assessment: 19:59 General: CODE SEPSIS CALLED AT 1958. cm10 20:55 General: Appears in no apparent distress. uncomfortable, Behavior is calm, cooperative, cp4 appropriate for age. Pain: Complains of pain in abdomen. Neuro: Level of Consciousness is awake, alert, obeys commands, Oriented to person, place, time, situation. Cardiovascular: Patient's skin is warm and dry. Respiratory: Airway is patent Respiratory effort is even, unlabored. GI: Abdomen is round non-distended, Bowel sounds present X 4 quads. Abd is soft and non tender X 4 quads. : Parent/caregiver report the patient having left nephrostomy tube placed approximately 2 months ago. EENT: No signs and/or symptoms were reported regarding the EENT system. Derm: No signs and/or symptoms reported regarding the dermatologic system. Musculoskeletal: No signs and/or symptoms reported regarding the musculoskeletal system. Vital Signs: 20:00 BP 125 / 86; Pulse 139; Resp 22; Temp 102.6(O); Pulse Ox 98% on R/A; Weight 56.7 kg; cm10 Height 5 ft. 1 in. ; Pain 8/10; 21:00 BP 113 / 73; Pulse 100; Resp 18; Pulse Ox 98% ; cp4 22:09 Temp 99.0; cp4 22:10 Temp 99.0; cp4 22:45 BP 96 / 53; Pulse 81; Resp 18; Pulse Ox 99% ; cp4 12/06 00:27 BP 96 / 52; Pulse 75; Resp 18; Pulse Ox 99% ; cp4 01:18 BP 97 / 55; Pulse 78; Resp 18; Pulse Ox 99% ; cp4 09/14 20:00 Body Mass Index 23.62 (56.70 kg, 154.94 cm) cm10 12 20:00 Pain Scale: Adult cm10 [place] Coma Score: 09/14 23:02 Eye Response: spontaneous(4). Motor Response: obeys commands(6). Verbal Response: sp4 oriented(5). Total: 15. ED Course: 19:40 Patient arrived in ED. jj6 20:01 Triage completed. cm10 20:02 Arm band placed on right wrist. Patient placed in an exam room, on a stretcher. cm10 20:04 Moshe Storm MD is Attending Physician. sp4 20:38 Initial lab(s) drawn, by ED staff, sent to lab. First set of blood cultures drawn cp4 Second set of blood cultures drawn Urine collected: nephrostomy tube EKG done, by ED staff, reviewed by Moshe Storm MD Flu and/or RSV swab sent to lab. 20:55 Cee Young is Primary Nurse. cp4 20:55 Bed in low position. Call light in reach. Side rails up X 1. cp4 20:55 No provider procedures requiring assistance completed. Inserted saline lock: 22 gauge cp4 in left antecubital area, using aseptic technique. Blood collected. Flushed with 10 mL NS. 21:55 CT Abd/Pelvis - IV Contrast Only In Process Unspecified. EDMS 22:46 initiated transfer with Mulu at [facility]. Requested [facility]. kmf [facility] [facility] Mulu escalated the call to [facility] administration. 09/15 00:55 [facility] east bed 9. Accepting Michelle Durán 07/16 [facility] 0020. Admin approval Mulu Deshpande \T\ 2311. [facility] to transfer pt. 01:19 Provided Education on: kidney stones. cp4 01:19 Patient transferred, IV remains in place. cp4 Administered Medications: 09/14 20:50 Drug: Ibuprofen PO 600 mg PO once Route: PO; cp4 22:09 Follow up: Temp 99.0; Response: No adverse reaction; Temperature is decreased cp4 20:51 CANCELLED (Physician Discretion): influenza virus vaccine0.5 ml IM once; Provide the cp4 Vaccine Information Statement (VIS). 20:51 Drug: NS 0.9% IV (30 ml/kg) 30 ml/kg IV at bolus once; Sepsis Protocol; to be given as cp4 a bolus over 90 minutes Route: IV; Rate: bolus; Site: left antecubital; 22:07 Follow up: IV Status: Infusion continued cp4 20:51 Drug: Cefepime IVPB 2 grams IVPB at 200 ml/hr once over 30 mins; (mix in NS 100 mL) cp4 Route: IVPB; Rate: 200 ml/hr; Infused Over: 30 mins; Site: left antecubital; 21:20 Follow up: Response: No adverse reaction; IV Status: Completed infusion cp4 20:51 Drug: morphine IVP or IV 6 mg IVP once over 4 mins Route: IVP; Infused Over: 4 mins; cp4 Site: left antecubital; 22:07 Follow up: Response: No adverse reaction; Pain is decreased cp4 20:51 Drug: Ondansetron IVP 8 mg IVP once; over 2 minutes Route: IVP; Site: left antecubital; cp4 22:08 Follow up: Response: No adverse reaction cp4 20:51 Drug: Acetaminophen PO 1000 mg PO once Route: PO; cp4 22:10 Follow up: Temp 99.0; Response: No adverse reaction; Temperature is decreased cp4 21:21 Drug: vancoMYCIN IVPB 1 grams IVPB once over 2 hrs Route: IVPB; Infused Over: 2 hrs; cp4 Site: left antecubital; 22:08 Drug: NS 0.9% IV 1000 ml IV at 125 ml once; to be given as a bolus over 60 minutes cp4 Route: IV; Rate: 125 ml; Site: left antecubital; 09/15 01:21 Follow up: IV Status: Infusion continued upon transfer cp4 09/14 22:45 Not Given (Hemodynamic Parameters): morphineor iv 4 mg IVP once over 4 mins cp4 22:45 Drug: Ketorolac IVP 30 mg IVP once Route: IVP; Site: left antecubital; cp4 09/15 00:38 Follow up: Response: No adverse reaction; Pain is decreased cp4 00:38 Not Given (Patient Refused): [id number] mg IVP once; over 1 to 2 minutes cp4 Medication: 09/14 20:55 VIS not applicable for this client. cp4 Outcome: 23:11 ER care complete, transfer ordered by . sp4 09/15 01:19 Transferred by ground EMS to [facility], Transfer form completed. cp4 X-rays sent w/ patient. Condition: stable Instructed on the need for transfer, 01:20 Patient left the ED. cp4 Addendum: 09/19/2024 12:05 Addendum: Culture Results: Positive urine culture. Phone call Attempt #1 Pt transferred s s to [facility]. FAxed culture report EMMANUEL Romero RN at [phone]. Signatures: Dispatcher [employer] EDMS Alysa Castillo RN RN Umm Doe Sergey, MD MD sp4 Chantal Phillips RN RN cm10 Cee Young 4 America Lopez [facility] Corrections: (The following items were deleted from the chart) 09/15 00:52 00:39 initiated transfer with Mulu at [facility]. Requested [facility] 00:55 09/14 22:46 initiated transfer with Mulu at [facility]. Requested [facility] 09/15 00:55 09/14 22:46 initiated transfer with Mulu at [facility]. Requested [facility] 09/15 00:55 12 23:[address] Storm [facility] urologist declined pt. Mulu escalated the call kmf to administration. [facility]
[2024-09-15] MEDS ORDERED: NA CHLORIDE 0.9% 1,000 ML ONE (00:26)
[2024-09-15 08:16] VITALS: TEMP 99
[2024-09-15 08:19] VITALS: O2SAT 99
[2024-09-15 08:21] VITALS: BP 97/55
== END 2024-09-15 01:20 | disposition short-term general hospital (02) ==
LOC: ER 19:38
DX: N10 Acute pyelonephritis (principal); R65.20 Severe sepsis without septic shock; N20.1 Calculus of ureter; Z93.6 Other artificial openings of urinary tract status
CPT/HCPCS: 36415; 74177; 80053; 81001; 81025; 82947; 83605; 84484; 84703; 85025; 85610; 85730; 87040; 87077; 87086; 87088; 87186; 87804; 96361; 96365; 96368; 96375; 99285; J0692; J2270; J2405; J7030; J7050; Q9967